=== PATIENT | female | born 1970 | race Caucasian/White ===

== ENCOUNTER 2016-04-17 20:07 | Emergency (ER) | payer MEDICARE, OTHER ==
--- NOTE | 2016-04-17 21:38 | DIAGNOSTIC IMAGING REPORT ---
PROCEDURE: XR CHEST 2 VIEW INDICATION: CHF, initial encounter TECHNIQUE: PA and lateral view. COMPARISON: Chest x-ray 02/11/2016 FINDINGS: Lungs are clear. Cardiovascular structures are normal. Bony thorax is unremarkable. No significant interval change. IMPRESSION: 1. Negative chest.
--- NOTE | 2016-04-17 21:59 | ED CLINICAL REPORT ---
Clinical Report - Physicians/Mid Levels [facility] [address] [place] [address] 04/17/2016 20:08 Patient: ALLIE SAXENA Time Seen: 20:31; initial patient contact, initial documentation, patient care assumed. Arrived- By private vehicle. Historian- patient. HISTORY OF PRESENT ILLNESS Chief Complaint: CHEST PAIN. At its maximum, severity described as severe. When seen in the E.D., severity described as severe. Modifying factors- worsened by movement and deep breaths. It is described as sharp and "pain" and it is described as located in the central chest area. No radiation. This started today and is still present. It was abrupt in onset and has been constant. No vomiting, difficulty breathing or diaphoresis. No additional chest pain. Similar symptoms previously: None. Recent medical care: Not recently seen/assessed. REVIEW OF SYSTEMS All systems otherwise negative, except as recorded above. PAST HISTORY See nurses notes. PROBLEMS: Upper Extremity Pain. Dizziness. Myofascial Strain. PTSD. Night Terrors. Gastroesophageal Reflux Disease. Bipolar Disorder. Depression. Neuropathy. Anxiety Reaction. Fall. Back Pain. Thyroid Disease. Head Injury. Contusion. . Choleystectomy. Tonsillectomy. Wrist surgery. Wrist surgery. Asthma. Discectomy. Diabetes Mellitus. --20:26 Radha Figueroa. ADDITIONAL SURGERIES: Back Surgery. Cholecystectomy. . Tonsillectomy. Wrist surgery. --20:26 Radha Figueroa. SOCIAL HISTORY Never smoker. History of occasional drug use: marijuana. No alcohol use. No recent travel. Is a local resident. FAMILY HISTORY Negative. ADDITIONAL NOTES The nursing notes have been reviewed with agreement regarding the chief complaint, HPI, ROS, PMH and patient medications and allergies. PHYSICAL EXAM Vital Signs: 04/17/2016 20:23 BP: 141/89. HR: 86. RR: 32. O2 saturation: 99%. Temp: 98.1 F. Have been reviewed as normal and appear to be correct. Appearance: Alert. Oriented X3. No acute distress. Anxious. Eyes: Pupils equal, round and reactive to light. Eyes normal inspection. Neck: Normal inspection. Neck supple. CVS: Normal heart rate and rhythm. Heart sounds normal. Pulses normal. Respiratory: No respiratory distress. Breath sounds normal. Chest nontender. Abdomen: Moderately obese. Back: Normal external inspection. Skin: Skin warm and dry. Normal skin color. No rash. Normal skin turgor. Extremities: Extremities exhibit normal ROM. No lower extremity edema. Neuro: Oriented X 3. No motor deficit. No sensory deficit. LABS, X-RAYS, AND EKG EKG: EKG time: (2026). No acute process. No acute ischemia. Normal EKG. Rate: 76. Normal EKG. The study has been interpreted contemporaneously by me (and dr kaiser). The EKG appears to be a good tracing. Interpretation time: 2031. Chest X-ray: Normal Chest X-Ray. (IMPRESSION: 1. Negative chest. Electronically Final signed by:Christian Phillip MD 04/17/2016 9:38:08 PM). The X-rays were interpreted by the radiologist and contemporaneously by me. PROGRESS AND PROCEDURES Course of Care: pt has long raquel for frequent narcs including pain meds and psych meds, over 1,000 pills and #9 er visits, see report for full details. Patient and spouse counseled in person regarding the patient's stable condition, test results and diagnosis. 21:59. Differential Diagnosis: I considered muscle strain, costochondritis, myositis, pleurisy, myocardial infarction, intermediate coronary syndrome, unstable angina, angina, aortic dissection, mitral valve prolapse, pericarditis, palpitations, pulmonary embolism, pneumonia, gastroesophageal reflux disease, esophagitis and esophageal spasm as a possible cause of chest pain in this patient. This is a partial list of diagnoses considered. (anxiety, substance abuse). Disposition: Discharged home in good and improved condition (21:59). Condition: good and stable. CLINICAL IMPRESSION Chest wall pain .12 lead EKG performed. INSTRUCTIONS Warnings: GENERAL WARNINGS: Return or contact your physician immediately if your condition worsens or changes unexpectedly, if not improving as expected, or if other problems arise. SPECIFICALLY, return if you develop chest pain, neck pain, jaw pain, shoulder pain, arm pain, back pain, difficulty breathing, a fluttering sensation in your chest, lightheadedness, fainting, extreme fatigue or sudden sweating. Prescription Medications: Naproxen 500 mg tablets: take 1 orally every 12 hours as needed for pain. Dispense twenty (20). No refills. Follow-up: Follow up with your doctor in about three days even if well. Call for an appointment. Summary of care provided to patient. Understanding of the discharge instructions verbalized by patient. (Electronically signed by Allie Steele A.R.N.P. 04/17/2016 22:16)
--- NOTE | 2016-04-17 21:59 | ED ORDER SUMMARY ---
..... Patient: ALLIE SAXENA OrderSheet [facility] VisitID: [id number] [address] [place] [address] 45y, F Registration Date/Time: 04/17/2016 ORDER SHEET Weight: 131.5 kg Allergies: Ampicillin, Bactrim, Latex, morphine, Penicillins GENERAL ORDERS: Chest 2V Urgent (20:34 04/17/2016 HBivens A.R.N.P.) (Ack 20:41 AMcQuoid ER Tech1) (20:48 MCampbell) MEDICATION ORDERS: Toradol IM 60 mg (NOW) (20:34 04/17/2016 HBivens A.R.N.P.) (20:38 HOSsydneeughfabrizio R.N.) IV FLUIDS: ORDER SHEET NOTES: [Electronically signed by Radha Figueroa (22:05 04/17/2016)] [Electronically signed by Allie Steele A.R.N.P. (22:16 04/17/2016)] [Electronically locked/signed by Radha Figueroa (22:05 04/17/2016)]
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
--- NOTE | 2016-04-17 21:59 | ED ORDER SUMMARY ---
..... Patient: ALLIE SAXENA OrderSheet [facility] VisitID: [id number] [address] [place] [address] 45y, F Registration Date/Time: 04/17/2016 ORDER SHEET Weight: 131.5 kg Allergies: Ampicillin, Bactrim, Latex, morphine, Penicillins GENERAL ORDERS: Chest 2V Urgent (20:34 04/17/2016 HBivens A.R.N.P.) (Ack 20:41 AMcQuoid ER Tech1) (20:48 MCampbell) MEDICATION ORDERS: Toradol IM 60 mg (NOW) (20:34 04/17/2016 HBivens A.R.N.P.) (20:38 HOSsydneeughfabrizio R.N.) IV FLUIDS: ORDER SHEET NOTES: [Electronically signed by Radha Figueroa (22:05 04/17/2016)] [Electronically signed by Allie Steele A.R.N.P. (22:16 04/17/2016)] [Electronically locked/signed by Radha Figueroa (22:05 04/17/2016)]
--- NOTE | 2016-04-17 22:16 | ED MAR SUMMARY ---
..... Medication Administration Record [facility] [address] [place] [address] Patient: ELIDIA SAXENA Visit ID: [id number] 45y, F Weight: 131.5 kg Height/Length: 64 in BMI: 49.8 ALLERGIES: Ampicillin, Bactrim, Latex, morphine, Penicillins Given 20:38 04/17/2016 Wiliam Carter R.N. Medication Administered: TORADOL [IM] (KETOROLAC TROMETHAMINE), Dose: 60 mg IM. Medication Ordered: Toradol IM 60 mg (NOW).
--- NOTE | 2016-04-17 22:16 | ED DISCHARGE INSTRUCTIONS ---
Patient: ALLIE SAXENA General Instructions [facility] VisitID: [id number] [place] [address] 45y, F Registration Date/Time: 04/17/2016 Chest wall pain .12 lead EKG performed. INSTRUCTIONS Warnings: GENERAL WARNINGS: Return or contact your physician immediately if your condition worsens or changes unexpectedly, if not improving as expected, or if other problems arise. SPECIFICALLY, return if you develop chest pain, neck pain, jaw pain, shoulder pain, arm pain, back pain, difficulty breathing, a fluttering sensation in your chest, lightheadedness, fainting, extreme fatigue or sudden sweating. Prescription Medications: Naproxen 500 mg tablets: take 1 orally every 12 hours as needed for pain. Dispense twenty (20). No refills. Follow-up: Follow up with your doctor in about three days even if well. Call for an appointment. Summary of care provided to patient. Understanding of the discharge instructions verbalized by patient. ADDITIONAL INFORMATION Chest Wall Pain: Costochondritis The chest pain that you have had today is caused by Costochondritis. This condition is due to an inflammation of the cartilage joining the ribs to the breastbone. It is not caused by heart or lung problems. Although the exact cause for costochondritis is not known, it often occurs during times of emotional stress. It can be painful, but it is not dangerous. It usually disappears within one to two weeks, but may recur. Rarely, a more serious condition may cause symptoms similar to costochondritis; therefore, watch for the warning signs listed below. Home Care: If you feel that emotional stress is a cause of your condition, try to identify sources of that stress. It may not be obvious! Learn ways to deal with the stress in your life such as regular exercise, muscle relaxation, meditation, or simply taking time out for yourself. For more information about this, consult your doctor or go to a local bookstore and review books and tapes available on the subject of stress reduction. You may use acetaminophen (Tylenol) or ibuprofen (Motrin, Advil) to control pain, unless another pain medicine was prescribed. [ NOTE: If you have liver disease or ever had a stomach ulcer, talk with your doctor before using these medicines.] The use of heat (hot wet compress or heating pad) with or without local analgesic creams (Deep Heat Rub, Jj Bell) will be helpful to reduce pain. Follow Up with your doctor as directed or sooner if you do not start to improve within the next two days. Get Prompt Medical Attention if any of the following occur: A change in the type of pain: if it feels different, becomes more severe, lasts longer, or spreads into your shoulder, arm, neck, jaw or back Shortness of breath or increased pain with breathing Weakness, dizziness, or fainting Cough with dark colored sputum (phlegm) or blood Abdominal pain Dark red or black stools Fever of 100.4F (38C) or higher, or as directed by your healthcare provider Naproxen Sodium Oral tablet What is this medicine? NAPROXEN (na PROX en) is a non-steroidal anti-inflammatory drug (NSAID). It is used to reduce swelling and to treat pain. This medicine may be used for dental pain, headache, or painful monthly periods. It is also used for painful joint and muscular problems such as arthritis, tendinitis, bursitis, and gout. How should I use this medicine? Take this medicine by mouth with a glass of water. Follow the directions on the prescription label. Take it with food if your stomach gets upset. Try to not lie down for at least 10 minutes after you take it. Take your medicine at regular intervals. Do not take your medicine more often than directed. Long-term, continuous use may increase the risk of heart attack or stroke. A special MedGuide will be given to you by the pharmacist with each prescription and refill. Be sure to read this information carefully each time. Talk to your litigation examiner regarding the use of this medicine in children. Special care may be needed. What side effects may I notice from receiving this medicine? Side effects that you should report to your doctor or health hospice care consultant as soon as possible: black or bloody stools, blood in the urine or vomit blurred vision chest pain difficulty breathing or wheezing nausea or vomiting severe stomach pain skin rash, skin redness, blistering or peeling skin, hives, or itching slurred speech or weakness on one side of the body swelling of eyelids, throat, lips unexplained weight gain or swelling unusually weak or tired yellowing of eyes or skin Side effects that usually do not require medical attention (report to your doctor or health hospice care consultant if they continue or are bothersome): constipation headache heartburn What may interact with this medicine? alcohol aspirin cidofovir diuretics lithium methotrexate other drugs for inflammation like ketorolac or prednisone pemetrexed probenecid warfarin What if I miss a dose? If you miss a dose, take it as soon as you can. If it is almost time for your next dose, take only that dose. Do not take double or extra doses. Where should I keep my medicine? Keep out of the reach of children. Store at room temperature between 15 and 30 degrees C (59 and 86 degrees F). Keep container tightly closed. Throw away any unused medicine after the expiration date. What should I tell my health care provider before I take this medicine? They need to know if you have any of these conditions: asthma cigarette smoker drink more than 3 alcohol containing drinks a day heart disease or circulation problems such as heart failure or leg edema (fluid retention) high blood pressure kidney disease liver disease stomach bleeding or ulcers an unusual or allergic reaction to naproxen, aspirin, other NSAIDs, other medicines, foods, dyes, or preservatives or trying to get breast-feeding What should I watch for while using this medicine? Tell your doctor or health hospice care consultant if your pain does not get better. Talk to your doctor before taking another medicine for pain. Do not treat yourself. This medicine does not prevent heart attack or stroke. In fact, this medicine may increase the chance of a heart attack or stroke. The chance may increase with longer use of this medicine and in people who have heart disease. If you take aspirin to prevent heart attack or stroke, talk with your doctor or health hospice care consultant. Do not take other medicines that contain aspirin, ibuprofen, or naproxen with this medicine. Side effects such as stomach upset, nausea, or ulcers may be more likely to occur. Many medicines available without a prescription should not be taken with this medicine. This medicine can cause ulcers and bleeding in the stomach and intestines at any time during treatment. Do not smoke cigarettes or drink alcohol. These increase irritation to your stomach and can make it more susceptible to damage from this medicine. Ulcers and bleeding can happen without warning symptoms and can cause . You may get drowsy or dizzy. Do not drive, use machinery, or do anything that needs mental alertness until you know how this medicine affects you. Do not stand or sit up quickly, especially if you are an older patient. This reduces the risk of dizzy or fainting spells. This medicine can cause you to bleed more easily. Try to avoid damage to your teeth and gums when you brush or floss your teeth. You have been given the following additional information: Chest Wall Pain, Costochondritis Naproxen Sodium Oral tablet (Electronically signed by Allie Steele A.R.N.P. 04/17/2016 22:16)
--- NOTE | 2016-04-17 22:16 | ED DISCHARGE INSTRUCTIONS ---
Patient: ALLIE SAXENA General Instructions [facility] VisitID: [id number] [place] [address] 45y, F Registration Date/Time: 04/17/2016 Chest wall pain .12 lead EKG performed. INSTRUCTIONS Warnings: GENERAL WARNINGS: Return or contact your physician immediately if your condition worsens or changes unexpectedly, if not improving as expected, or if other problems arise. SPECIFICALLY, return if you develop chest pain, neck pain, jaw pain, shoulder pain, arm pain, back pain, difficulty breathing, a fluttering sensation in your chest, lightheadedness, fainting, extreme fatigue or sudden sweating. Prescription Medications: Naproxen 500 mg tablets: take 1 orally every 12 hours as needed for pain. Dispense twenty (20). No refills. Follow-up: Follow up with your doctor in about three days even if well. Call for an appointment. Summary of care provided to patient. Understanding of the discharge instructions verbalized by patient. ADDITIONAL INFORMATION Chest Wall Pain: Costochondritis The chest pain that you have had today is caused by Costochondritis. This condition is due to an inflammation of the cartilage joining the ribs to the breastbone. It is not caused by heart or lung problems. Although the exact cause for costochondritis is not known, it often occurs during times of emotional stress. It can be painful, but it is not dangerous. It usually disappears within one to two weeks, but may recur. Rarely, a more serious condition may cause symptoms similar to costochondritis; therefore, watch for the warning signs listed below. Home Care: If you feel that emotional stress is a cause of your condition, try to identify sources of that stress. It may not be obvious! Learn ways to deal with the stress in your life such as regular exercise, muscle relaxation, meditation, or simply taking time out for yourself. For more information about this, consult your doctor or go to a local bookstore and review books and tapes available on the subject of stress reduction. You may use acetaminophen (Tylenol) or ibuprofen (Motrin, Advil) to control pain, unless another pain medicine was prescribed. [ NOTE: If you have liver disease or ever had a stomach ulcer, talk with your doctor before using these medicines.] The use of heat (hot wet compress or heating pad) with or without local analgesic creams (Deep Heat Rub, Jj Bell) will be helpful to reduce pain. Follow Up with your doctor as directed or sooner if you do not start to improve within the next two days. Get Prompt Medical Attention if any of the following occur: A change in the type of pain: if it feels different, becomes more severe, lasts longer, or spreads into your shoulder, arm, neck, jaw or back Shortness of breath or increased pain with breathing Weakness, dizziness, or fainting Cough with dark colored sputum (phlegm) or blood Abdominal pain Dark red or black stools Fever of 100.4F (38C) or higher, or as directed by your healthcare provider Naproxen Sodium Oral tablet What is this medicine? NAPROXEN (na PROX en) is a non-steroidal anti-inflammatory drug (NSAID). It is used to reduce swelling and to treat pain. This medicine may be used for dental pain, headache, or painful monthly periods. It is also used for painful joint and muscular problems such as arthritis, tendinitis, bursitis, and gout. How should I use this medicine? Take this medicine by mouth with a glass of water. Follow the directions on the prescription label. Take it with food if your stomach gets upset. Try to not lie down for at least 10 minutes after you take it. Take your medicine at regular intervals. Do not take your medicine more often than directed. Long-term, continuous use may increase the risk of heart attack or stroke. A special MedGuide will be given to you by the pharmacist with each prescription and refill. Be sure to read this information carefully each time. Talk to your outside property agent regarding the use of this medicine in children. Special care may be needed. What side effects may I notice from receiving this medicine? Side effects that you should report to your doctor or health ostomy care nurse as soon as possible: black or bloody stools, blood in the urine or vomit blurred vision chest pain difficulty breathing or wheezing nausea or vomiting severe stomach pain skin rash, skin redness, blistering or peeling skin, hives, or itching slurred speech or weakness on one side of the body swelling of eyelids, throat, lips unexplained weight gain or swelling unusually weak or tired yellowing of eyes or skin Side effects that usually do not require medical attention (report to your doctor or health ostomy care nurse if they continue or are bothersome): constipation headache heartburn What may interact with this medicine? alcohol aspirin cidofovir diuretics lithium methotrexate other drugs for inflammation like ketorolac or prednisone pemetrexed probenecid warfarin What if I miss a dose? If you miss a dose, take it as soon as you can. If it is almost time for your next dose, take only that dose. Do not take double or extra doses. Where should I keep my medicine? Keep out of the reach of children. Store at room temperature between 15 and 30 degrees C (59 and 86 degrees F). Keep container tightly closed. Throw away any unused medicine after the expiration date. What should I tell my health care provider before I take this medicine? They need to know if you have any of these conditions: asthma cigarette smoker drink more than 3 alcohol containing drinks a day heart disease or circulation problems such as heart failure or leg edema (fluid retention) high blood pressure kidney disease liver disease stomach bleeding or ulcers an unusual or allergic reaction to naproxen, aspirin, other NSAIDs, other medicines, foods, dyes, or preservatives or trying to get breast-feeding What should I watch for while using this medicine? Tell your doctor or health ostomy care nurse if your pain does not get better. Talk to your doctor before taking another medicine for pain. Do not treat yourself. This medicine does not prevent heart attack or stroke. In fact, this medicine may increase the chance of a heart attack or stroke. The chance may increase with longer use of this medicine and in people who have heart disease. If you take aspirin to prevent heart attack or stroke, talk with your doctor or health ostomy care nurse. Do not take other medicines that contain aspirin, ibuprofen, or naproxen with this medicine. Side effects such as stomach upset, nausea, or ulcers may be more likely to occur. Many medicines available without a prescription should not be taken with this medicine. This medicine can cause ulcers and bleeding in the stomach and intestines at any time during treatment. Do not smoke cigarettes or drink alcohol. These increase irritation to your stomach and can make it more susceptible to damage from this medicine. Ulcers and bleeding can happen without warning symptoms and can cause . You may get drowsy or dizzy. Do not drive, use machinery, or do anything that needs mental alertness until you know how this medicine affects you. Do not stand or sit up quickly, especially if you are an older patient. This reduces the risk of dizzy or fainting spells. This medicine can cause you to bleed more easily. Try to avoid damage to your teeth and gums when you brush or floss your teeth. You have been given the following additional information: Chest Wall Pain, Costochondritis Naproxen Sodium Oral tablet (Electronically signed by Allie Steele A.R.N.P. 04/17/2016 22:16)
--- NOTE | 2016-04-17 22:16 | ED MED RECONCILIATION SUMMARY ---
Patient: ODESSAALLIE Medication Reconciliation Report [facility] VisitID: [id number] [address] [place] [address] 45y, F Registration Date/Time: 04/17/2016 Weight: 131.5 kg Height/Length: 64 in. BMI: 49.8 ALLERGIES: Ampicillin, Bactrim, Latex, morphine, Penicillins The patient's Home Medications are listed below: THE FOLLOWING MEDICATIONS NEED TO BE RECONCILED: Ambien Oral 10 mg, at bedtime Gabapentin Oral (600 mg), 3x a day Ibuprofen Oral 600 mg, 3x a day Imaprine 2 tabs, every PM LamoTRIgine Oral (50 mg) 2 tablets, daily Levothyroxine Sodium Oral 137mcg, daily Lexapro Oral 30 mg, daily MetFORMIN HCl Oral 1000, 2x a day Omeprazole Oral 20 mg, 2x a day Prazosin HCl Oral unknown, at bedtime Robaxin Oral 750 mg, 3x a day TraZODone HCl Oral unknown, at bedtime The source(s) of the original Home Medication information: Not obtained. The following Medications were given to the patient in the Emergency Department: Toradol [IM] IM 60 mg, administered: 04/17/2016 8:38:00 PM The following Medications were prescribed to the patient: Naproxen 500 mg tablets: take 1 orally every 12 hours as needed for pain. Dispense twenty (20). No refills. -- Allie Steele A.R.N.P.
--- NOTE | 2016-04-17 22:16 | ED MED RECONCILIATION SUMMARY ---
Patient: ODESSAALLIE Medication Reconciliation Report [facility] VisitID: [id number] [address] [place] [address] 45y, F Registration Date/Time: 04/17/2016 Weight: 131.5 kg Height/Length: 64 in. BMI: 49.8 ALLERGIES: Ampicillin, Bactrim, Latex, morphine, Penicillins The patient's Home Medications are listed below: THE FOLLOWING MEDICATIONS NEED TO BE RECONCILED: Ambien Oral 10 mg, at bedtime Gabapentin Oral (600 mg), 3x a day Ibuprofen Oral 600 mg, 3x a day Imaprine 2 tabs, every PM LamoTRIgine Oral (50 mg) 2 tablets, daily Levothyroxine Sodium Oral 137mcg, daily Lexapro Oral 30 mg, daily MetFORMIN HCl Oral 1000, 2x a day Omeprazole Oral 20 mg, 2x a day Prazosin HCl Oral unknown, at bedtime Robaxin Oral 750 mg, 3x a day TraZODone HCl Oral unknown, at bedtime The source(s) of the original Home Medication information: Not obtained. The following Medications were given to the patient in the Emergency Department: Toradol [IM] IM 60 mg, administered: 04/17/2016 8:38:00 PM The following Medications were prescribed to the patient: Naproxen 500 mg tablets: take 1 orally every 12 hours as needed for pain. Dispense twenty (20). No refills. -- Allie Steele A.R.N.P.
--- NOTE | 2016-04-17 22:16 | ED MAR SUMMARY ---
..... Medication Administration Record [facility] [address] [place] [address] Patient: ELIDIA SAXENA Visit ID: [id number] 45y, F Weight: 131.5 kg Height/Length: 64 in BMI: 49.8 ALLERGIES: Ampicillin, Bactrim, Latex, morphine, Penicillins Given 20:38 04/17/2016 Wiliam Carter R.N. Medication Administered: TORADOL [IM] (KETOROLAC TROMETHAMINE), Dose: 60 mg IM. Medication Ordered: Toradol IM 60 mg (NOW).
== END 2016-04-17 21:17 | disposition home or self-care (01) ==
LOC: ED SRH 20:07
DX: R07.89 Other chest pain (principal); E11.9 Type 2 diabetes mellitus without complications; E07.9 Disorder of thyroid, unspecified; K21.9 Gastro-esophageal reflux disease without esophagitis; Z79.84 Long term (current) use of oral hypoglycemic drugs; Z79.899 Other long term (current) drug therapy; Z79.1 Long term (current) use of non-steroidal anti-inflammatories (NSAID); Z88.0 Allergy status to penicillin; Z88.1 Allergy status to other antibiotic agents; Z88.5 Allergy status to narcotic agent

== ENCOUNTER 2016-05-05 22:36 | Emergency (ER) | payer MEDICARE, OTHER ==
--- NOTE | 2016-05-06 01:00 | ED ORDER SUMMARY ---
..... 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 (03:12 05/06/2016)] [Electronically signed by Daya Cardoza MD (18:13 05/06/2016)] [Electronically locked/signed by Richie Lau R.N. (03:12 05/06/2016)]
--- NOTE | 2016-05-06 01:00 | ED CLINICAL REPORT ---
Clinical Report - Physicians/Mid Levels [facility] [address] [place] [address] 05/05/2016 22:36 Patient: ELIDIA SAXENA Time Seen: 23:28. Arrived- By private vehicle. Historian- patient. HISTORY OF PRESENT ILLNESS Chief Complaint: CHEST PAIN. It is described as sharp and "pain" and it is described as located in the left chest area. No radiation. Is still present. Onset during coughing. At its maximum, severity described as 8 / 10. When seen in the E.D., severity described as 8 / 10. Modifying factors- worsened by movement, cough and deep breaths. Not relieved by anything. No nausea, vomiting or diaphoresis. She has had difficulty breathing (hurts to take a deep breath). Similar symptoms previously: Once. ( About 1 month ago, pt fell and injured her L ribs in the same spot. X-ray showed no fracture at the time.). Recent medical care: Not recently seen/assessed. REVIEW OF SYSTEMS No fever, chills, pedal edema, calf pain or fainting episodes. No headache, sore throat, blurred vision, abdominal pain or black stools. No difficulty with urination, skin rash, enlarged lymph nodes, joint pain or bloody stools. The patient has had a cough. All systems otherwise negative, except as recorded above. PAST HISTORY Problems: Dizziness. PTSD. Night Terrors. Gastroesophageal Reflux Disease. Bipolar Disorder. Depression. Neuropathy. Anxiety Reaction. Thyroid Disease. Head Injury. Asthma. Diabetes Mellitus. Additional Surgeries: Cholecystectomy. . Discectomy for intervertebral herniated disc, nucleus pulposus. Tonsillectomy. Wrist surgery. Allergies: Ampicillin. Latex. Morphine and Related. Penicillins. Zithromax. SOCIAL HISTORY Never smoker. History of drug use: marijuana. No alcohol use. ADDITIONAL NOTES The nursing notes have been reviewed. PHYSICAL EXAM Vital Signs: 05/05/2016 23:02 BP: 111/77. HR: 94. RR: 16. O2 saturation: 97%. Temp: 97.5 F. Pain level now: 8/10. Have been reviewed. Appearance: Alert. Patient in moderate distress. Distress appears due to pain and anxiety. (PT is standing at the counter, crying and holding her L ribs.). Eyes: Pupils equal, round and reactive to light. Eyes normal inspection. ENT: Nose normal. Neck: Normal inspection. CVS: Normal heart rate and rhythm. Heart sounds normal. Pulses normal. Respiratory: No respiratory distress. Chest pain reproducible (L lateral rib cage, around the 5th-6th rib level). Breath sounds normal. Abdomen: Soft and nontender. Back: Normal external inspection. No CVA tenderness. Skin: Skin warm and dry. Normal skin color. No rash. Normal skin turgor. Extremities: Extremities exhibit normal ROM. No lower extremity edema. Neuro: (Grossly intact.). LABS, X-RAYS, AND EKG Sternum / Ribs X-rays: No fracture present. Normal lung markings present. Soft tissues normal. No bony lesion present. Views: left ribs. AP of chest. Technique: good. The X-rays were independently viewed by me and interpreted contemporaneously by me. Prior films were not available for comparison. Pulse Oximetry: 05/05/2016 23:02 O2 saturation: 97%. (FIO2 - room air). Interpretation: normal. PROGRESS AND PROCEDURES Course of Care: Pt was given IM Toradol and Dilaudid for symptomatic relief. X-ray series was negative. Patient and spouse counseled in person regarding the patient's stable condition, test results, diagnosis and need for follow-up. Concerns were addressed. Old medical records reviewed. Disposition: Discharged. Condition: stable and improved. CLINICAL IMPRESSION Chest wall pain INSTRUCTIONS (Your x-ray series looks good--no broken ribs. When you fell, you likely bruised your ribs and strained the soft tissues of your chest wall.). Warnings: SEDATIVE MEDICATION: You were given sedative medication during your visit. Do not drive or operate dangerous machinery for 6 hours. GENERAL WARNINGS: Return or contact your physician immediately if your condition worsens or changes unexpectedly, if not improving as expected, or if other problems arise. Prescription Medications: Hydrocodone/APAP 5mg / 325mg: take 1-2 orally every 6 hours as needed for pain. Dispense fifteen (15). No refill. Follow-up: Follow up with your doctor in five days if not better. Understanding of the discharge instructions verbalized by patient. (Electronically signed by Daya Cardoza MD 05/06/2016 18:13)
--- NOTE | 2016-05-06 01:00 | ED NURSING NOTES ---
Clinical Report - Nurses [place] [address] [place] [address] 05/05/2016 22:36 Patient: ELIDIA SAXENA TRIAGE Triage time 23:02. Acuity: LEVEL 4. Chief Complaint: FALL OUT OF BED, onto a carpeted surface and landed on their back. Alert. --23:10 TonyaB, R.N. 23:02 05/05/16. BP: 111/77. HR: 94. RR: 16. O2 saturation: 97%. Temp: 97.5 F. Pain level now: 10/11. --23:10 TonyaB, R.N. Weight: 133.3 kg. Height/Length: 64 inches. BMI: 50.5. --23:06 TonyaB, R.N. Allergies Latex. --23:04 TonyaB, R.N. Penicillins. --23:04 TonyaB, R.N. Morphine and Related. --23:05 TonyaB, R.N. Ampicillin. --23:05 TonyaB, R.N. Zithromax. --23:05 TonyaB, R.N. History Arrived by private vehicle. Historian: patient. Accompanied by family. Location of injuries: right breast. This occurred yesterday. ( pt complains right rib and back pain). She has had back pain. Treatment STEWARD/STEWARDESS THIRD CLASS: None. Trauma activation: Pre-hospital notification of patient arrival was not received. PAST MEDICAL HX: Tetanus status: up-to-date. Immunizations: up-to-date. SOCIAL HX: Never smoker. History of drug use: marijuana. No alcohol use. No infectious disease exposure. SELF HARM ASSESSMENT: A self harm assessment was performed. The patient answered "no" to the question "Have you recently felt down, depressed, or hopeless?", "Have you noticed less interest or pleasure in doing things?", "Do you have thoughts of harming or killing yourself?", "Are you here because you tried to hurt yourself?", "Have you ever tried to hurt yourself before today?", "Have you recently had thoughts about harming or killing others?" and "Do you have any dangerous items in your possession?". FALL RISK ASSESSMENT: Fall risk assessment completed. No fall risk identified. NUTRITIONAL RISK ASSESSMENT: The nutritional risk assessment revealed no deficiencies. FUNCTIONAL ASSESSMENT: Functional assessment: no impairments noted. LEARNING NEEDS ASSESSMENT: The learning needs assessment revealed no barriers. SKIN INTEGRITY ASSESSMENT: Skin integrity risk assessment completed. No skin integrity risk identified. --23:10 Jesse Robesron Interventions ID band on patient. To treatment room. --23:10 Jesse Roberson PHYSICAL ASSESSMENT To room via wheelchair. GENERAL / NEURO / PSYCH: Alert. Oriented X 4. Appears in pain. HEENT: Pupils equal, round and reactive to light. Head non-tender. RESPIRATORY: Respirations not labored. Chest wall tenderness. Breath sounds within normal limits. CVS: Normal heart rate and rhythm. Pulses within normal limits. Capillary refill less than 2 seconds. GI / : Abdomen soft and nontender. EXTREMITIES: Extremities exhibit normal ROM. Neuro-vascular status intact to the extremity. SKIN: Skin intact. Skin is warm and dry. --23:11 Jesse Roberson NURSING PROGRESS NOTES ( pt states she was seen at urgent care a few days ago and was given xray and rx for ultram, pt states she is no better). --23:28 Jesse Roberson 00:08 05/06/2016 Toradol (Ketorolac Tromethamine) IM 60 mg given. Given in the left ventral gluteus. Allergies verified and confirmed 5 rights. --00:12 Richie Lau R.N. 00:09 05/06/2016 Dilaudid (HYDROmorphone HCl PF) IM 1 mg given. Given in the right ventral gluteus. Allergies verified, confirmed 5 rights and sedative warning given to the patient. --00:12 Richie Lau R.N. Patient returned from radiology by stretcher. (00:40). --00:40 Jesse Roberson DISPOSITION / DISCHARGE Departure time: 01:39. Condition at departure: improved. No learning barriers present. Discharge instructions provided and reviewed with the patient. Reviewed medication(s) side effects, precautions, dosing and course information. Prescription(s) given to the patient. Patient verbalized understanding. Written instructions provided in Bulgarian. The patient was discharged by the physician. She was discharged home and accompanied by spouse. She left the Emergency Department ambulatory and via private vehicle. Spouse driving. FALL RISK ASSESSMENT: Fall risk assessment completed. No fall risk identified. --01:39 Jesse Roberson 01:37 05/06/16. BP: 155/74. HR: 78. RR: 18. O2 saturation: 98%. Temp: deferred. Pain level now 0/10. --01:39 Jesse Roberson Locked/Released at 05/06/2016 3:12 by Richie Lau R.N.
--- NOTE | 2016-05-06 01:00 | ED ORDER SUMMARY ---
..... 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 (03:12 05/06/2016)] [Electronically signed by Daya Cardoza MD (18:13 05/06/2016)] [Electronically locked/signed by Richie Lau R.N. (03:12 05/06/2016)]
--- NOTE | 2016-05-06 01:00 | ED NURSING NOTES ---
Clinical Report - Nurses [place] [address] [place] [address] 05/05/2016 22:36 Patient: ELIDIA SAXENA TRIAGE Triage time 23:02. Acuity: LEVEL 4. Chief Complaint: FALL OUT OF BED, onto a carpeted surface and landed on their back. Alert. --23:10 TonyaB, R.N. 23:02 05/05/16. BP: 111/77. HR: 94. RR: 16. O2 saturation: 97%. Temp: 97.5 F. Pain level now: 10/11. --23:10 TonyaB, R.N. Weight: 133.3 kg. Height/Length: 64 inches. BMI: 50.5. --23:06 TonyaB, R.N. Allergies Latex. --23:04 TonyaB, R.N. Penicillins. --23:04 TonyaB, R.N. Morphine and Related. --23:05 TonyaB, R.N. Ampicillin. --23:05 TonyaB, R.N. Zithromax. --23:05 TonyaB, R.N. History Arrived by private vehicle. Historian: patient. Accompanied by family. Location of injuries: right breast. This occurred yesterday. ( pt complains right rib and back pain). She has had back pain. Treatment PUMP SERVICER: None. Trauma activation: Pre-hospital notification of patient arrival was not received. PAST MEDICAL HX: Tetanus status: up-to-date. Immunizations: up-to-date. SOCIAL HX: Never smoker. History of drug use: marijuana. No alcohol use. No infectious disease exposure. SELF HARM ASSESSMENT: A self harm assessment was performed. The patient answered "no" to the question "Have you recently felt down, depressed, or hopeless?", "Have you noticed less interest or pleasure in doing things?", "Do you have thoughts of harming or killing yourself?", "Are you here because you tried to hurt yourself?", "Have you ever tried to hurt yourself before today?", "Have you recently had thoughts about harming or killing others?" and "Do you have any dangerous items in your possession?". FALL RISK ASSESSMENT: Fall risk assessment completed. No fall risk identified. NUTRITIONAL RISK ASSESSMENT: The nutritional risk assessment revealed no deficiencies. FUNCTIONAL ASSESSMENT: Functional assessment: no impairments noted. LEARNING NEEDS ASSESSMENT: The learning needs assessment revealed no barriers. SKIN INTEGRITY ASSESSMENT: Skin integrity risk assessment completed. No skin integrity risk identified. --23:10 Jesse Roberson Interventions ID band on patient. To treatment room. --23:10 Jesse Roberson PHYSICAL ASSESSMENT To room via wheelchair. GENERAL / NEURO / PSYCH: Alert. Oriented X 4. Appears in pain. HEENT: Pupils equal, round and reactive to light. Head non-tender. RESPIRATORY: Respirations not labored. Chest wall tenderness. Breath sounds within normal limits. CVS: Normal heart rate and rhythm. Pulses within normal limits. Capillary refill less than 2 seconds. GI / : Abdomen soft and nontender. EXTREMITIES: Extremities exhibit normal ROM. Neuro-vascular status intact to the extremity. SKIN: Skin intact. Skin is warm and dry. --23:11 Jesse Roberson NURSING PROGRESS NOTES ( pt states she was seen at urgent care a few days ago and was given xray and rx for ultram, pt states she is no better). --23:28 Jesse Roberson 00:08 05/06/2016 Toradol (Ketorolac Tromethamine) IM 60 mg given. Given in the left ventral gluteus. Allergies verified and confirmed 5 rights. --00:12 Richie Lau R.N. 00:09 05/06/2016 Dilaudid (HYDROmorphone HCl PF) IM 1 mg given. Given in the right ventral gluteus. Allergies verified, confirmed 5 rights and sedative warning given to the patient. --00:12 Richie Lau R.N. Patient returned from radiology by stretcher. (00:40). --00:40 Jesse Roberson DISPOSITION / DISCHARGE Departure time: 01:39. Condition at departure: improved. No learning barriers present. Discharge instructions provided and reviewed with the patient. Reviewed medication(s) side effects, precautions, dosing and course information. Prescription(s) given to the patient. Patient verbalized understanding. Written instructions provided in Urdu. The patient was discharged by the physician. She was discharged home and accompanied by spouse. She left the Emergency Department ambulatory and via private vehicle. Spouse driving. FALL RISK ASSESSMENT: Fall risk assessment completed. No fall risk identified. --01:39 Jesse Roberson 01:37 05/06/16. BP: 155/74. HR: 78. RR: 18. O2 saturation: 98%. Temp: deferred. Pain level now 0/10. --01:39 Jesse Roberson Locked/Released at 05/06/2016 3:12 by Richie Lau R.N.
--- NOTE | 2016-05-06 08:45 | DIAGNOSTIC IMAGING REPORT ---
PROCEDURE: XR RIBS UNILAT W/PA CHEST-RT INDICATION: TRAUMA/INJURY TECHNIQUE: Two views of the right ribs with single PA view chest. COMPARISON: 04/17/2016 FINDINGS: RIGHT RIBS: No displaced rib fractures. No suspicious rib lesions. CHEST: Normal cardiomediastinal contour. Clear lungs without pleural effusion, pneumothorax, or contusion. The other visible osseous structures are intact. IMPRESSION: 1. Intact right ribs. 2. Normal chest without radiographic evidence of trauma.
--- NOTE | 2016-05-06 18:14 | ED MAR SUMMARY ---
..... Medication Administration Record [facility] [address] [place] [address] Patient: ELIDIA SAXENA Visit ID: [id number] 45y, F Weight: 133.3 kg Height/Length: 64 in BMI: 50.5 ALLERGIES: Zithromax, Ampicillin, Morphine and Related, Penicillins, Latex Given 00:08 05/06/2016 Richie Lau, R.N. Medication Administered: TORADOL [IM] (KETOROLAC TROMETHAMINE), Dose: 60 mg IM. Medication Ordered: Toradol IM 60 mg (NOW). Given 00:09 05/06/2016 Richie Lau, R.N. Medication Administered: DILAUDID [IM] (HYDROMORPHONE HCL PF), Dose: 1 mg IM. Medication Ordered: Dilaudid IM 1 mg (HIGH ALERT MEDICATION, NOW).
--- NOTE | 2016-05-06 18:14 | ED DISCHARGE INSTRUCTIONS ---
Patient: ELIDIA SAXENA General Instructions [facility] VisitID: [id number] [place] [address] 45y, F Registration Date/Time: 05/05/2016 Chest wall pain INSTRUCTIONS (Your x-ray series looks good--no broken ribs. When you fell, you likely bruised your ribs and strained the soft tissues of your chest wall.). Warnings: SEDATIVE MEDICATION: You were given sedative medication during your visit. Do not drive or operate dangerous machinery for 6 hours. GENERAL WARNINGS: Return or contact your physician immediately if your condition worsens or changes unexpectedly, if not improving as expected, or if other problems arise. Prescription Medications: Hydrocodone/APAP 5mg / 325mg: take 1-2 orally every 6 hours as needed for pain. Dispense fifteen (15). No refill. Follow-up: Follow up with your doctor in five days if not better. Understanding of the discharge instructions verbalized by patient. ADDITIONAL INFORMATION Chest Contusion Acontusion is a bruise to the skin, muscle or ribs. It may cause pain, tenderness, swelling and a purplish discoloration. Contusions take a few days to a few weeks to heal. Home Care: Rest. You should not be doing any heavy lifting or strenuous exertion, or any activity that causes pain. You may use acetaminophen (Tylenol) or ibuprofen (Motrin, Advil) to control pain, unless another pain medicine was prescribed. [ NOTE: If you have chronic liver or kidney disease or ever had a stomach ulcer or GI bleeding, talk with your doctor before using these medicines.] Follow Up with your doctor during the next week or as directed. Get Prompt Medical Attention if any of the following occur: Shortness of breath Increasing chest pain with breathing Dizziness, weakness or fainting New or worsening of abdominal pain Fever of 100.4F (38C) or higher, or as directed by your healthcare provider Chest Strain A strain of the chest is due to stretching and tearing of the muscle fibers between the ribs. This may occur as a result of severe coughing, strenuous lifting or twisting injuries of the upper back. This usually causes increased pain with movement or deep breathing. This may take a few days to a few weeks to heal. Home Care: Rest. Avoid heavy lifting or strenuous exertion. Avoid any activity that causes pain. If you have a severe cough, use a cough syrup such as Robitussin DM (containing dextromethorphan) unless another cough medicine was prescribed. You may use acetaminophen (Tylenol) or ibuprofen (Motrin, Advil) to control pain, unless another medicine was prescribed. [ NOTE: If you have chronic liver or kidney disease or ever had a stomach ulcer or GI bleeding, talk with your doctor before using these medicines.] Follow Up with your doctor as directed. Get Prompt Medical Attention if any of the following occur: A change in the type of pain: if it feels different, becomes more severe, lasts longer, or begins to spread into your shoulder, arm, neck, jaw or back Shortness of breath or increased pain with breathing Cough with dark colored sputum (phlegm) or blood Weakness, dizziness, or fainting Fever of 100.4F (38C) or higher, or as directed by your healthcare provider You have been given the following additional information: Chest Wall Contusion Chest Wall Strain (Electronically signed by Daya Cardoza MD 05/06/2016 18:13)
--- NOTE | 2016-05-06 18:14 | ED MED RECONCILIATION SUMMARY ---
Patient: ELIDIA SAXENA Medication Reconciliation Report [facility] VisitID: [id number] [address] [place] [address] 45y, F Registration Date/Time: 05/05/2016 Weight: 133.3 kg Height/Length: 64 in. BMI: 50.5 ALLERGIES: Ampicillin, Latex, Morphine and Related, Penicillins, Zithromax The patient's Home Medications are listed below: Not obtained. The source(s) of the original Home Medication information: Not obtained. The following Medications were given to the patient in the Emergency Department: Toradol [IM] IM 60 mg, administered: 05/06/2016 12:08:00 AM Dilaudid [IM] IM 1 mg, administered: 05/06/2016 12:09:00 AM The following Medications were prescribed to the patient: Hydrocodone/APAP 5mg / 325mg: take 1-2 orally every 6 hours as needed for pain. Dispense fifteen (15). No refill. -- Daya Cardoza MD
--- NOTE | 2016-05-06 18:14 | ED MAR SUMMARY ---
..... Medication Administration Record [facility] [address] [place] [address] Patient: ELIDIA SAXENA Visit ID: [id number] 45y, F Weight: 133.3 kg Height/Length: 64 in BMI: 50.5 ALLERGIES: Zithromax, Ampicillin, Morphine and Related, Penicillins, Latex Given 00:08 05/06/2016 Richie Lau, R.N. Medication Administered: TORADOL [IM] (KETOROLAC TROMETHAMINE), Dose: 60 mg IM. Medication Ordered: Toradol IM 60 mg (NOW). Given 00:09 05/06/2016 Richie Lau, R.N. Medication Administered: DILAUDID [IM] (HYDROMORPHONE HCL PF), Dose: 1 mg IM. Medication Ordered: Dilaudid IM 1 mg (HIGH ALERT MEDICATION, NOW).
--- NOTE | 2016-05-06 18:14 | ED MED RECONCILIATION SUMMARY ---
Patient: ELIDIA SAXENA Medication Reconciliation Report [facility] VisitID: [id number] [address] [place] [address] 45y, F Registration Date/Time: 05/05/2016 Weight: 133.3 kg Height/Length: 64 in. BMI: 50.5 ALLERGIES: Ampicillin, Latex, Morphine and Related, Penicillins, Zithromax The patient's Home Medications are listed below: Not obtained. The source(s) of the original Home Medication information: Not obtained. The following Medications were given to the patient in the Emergency Department: Toradol [IM] IM 60 mg, administered: 05/06/2016 12:08:00 AM Dilaudid [IM] IM 1 mg, administered: 05/06/2016 12:09:00 AM The following Medications were prescribed to the patient: Hydrocodone/APAP 5mg / 325mg: take 1-2 orally every 6 hours as needed for pain. Dispense fifteen (15). No refill. -- Daya Cardoza MD
== END 2016-05-06 01:30 | disposition home or self-care (01) ==
LOC: ED SRH 22:36
DX: R07.89 Other chest pain (principal); E11.9 Type 2 diabetes mellitus without complications; Z88.5 Allergy status to narcotic agent; Z88.1 Allergy status to other antibiotic agents; Z88.0 Allergy status to penicillin; Z91.040 Latex allergy status

== ENCOUNTER 2016-06-30 20:17 | Emergency (ER) | payer MEDICARE, OTHER ==
--- NOTE | 2016-06-30 20:58 | DIAGNOSTIC IMAGING REPORT ---
PROCEDURE: XR SHOULDER 2 OR MORE VW-LEFT INDICATION: TRAUMA/INJURY TECHNIQUE: Three views. COMPARISON: None. FINDINGS: There mild degenerative changes of the left acromioclavicular joint. Osseous structures and joint spaces are otherwise normal. IMPRESSION: 1. Mild degenerative changes of the left acromioclavicular joint. 2. Otherwise negative left shoulder.
--- NOTE | 2016-06-30 21:15 | ED CLINICAL REPORT ---
Clinical Report - Physicians/Mid Levels [place] [address] [place] [address] 06/30/2016 20:17 [id number] Time Seen: 20:27; upon arrival, initial patient contact, initial documentation, patient care assumed. Arrived- By private vehicle. Historian- patient and significant other. HISTORY OF PRESENT ILLNESS Chief Complaint: Injury to left shoulder. The injury happened just prior to arrival about 2 years ago. The patient sustained a light direct blow. ([employer]). ( states a box with a pedestal fan in it fell off [employer] shelf and hit the top of her shoulder). Patient is experiencing severe pain. Patient denies injury to the head or neck. No other injury. ( pt admitted to not getting her mri of her shoulder). REVIEW OF SYSTEMS No swelling, tingling, numbness, weakness or suspected foreign body. No skin laceration. She has had severe joint pain (2 years ago), involving the left shoulder. All systems otherwise negative, except as recorded above. PAST HISTORY See nurses notes. PAST HISTORY Problems: PTSD. Night Terrors. Gastroesophageal Reflux Disease. Bipolar Disorder. Depression. Neuropathy. Anxiety Reaction. Thyroid Disease. Head Injury. Asthma. Diabetes Mellitus. Additional Surgeries: Back Surgery. Cholecystectomy. . Tonsillectomy. Wrist surgery. She has had a prior injury to the same area (has had chronic shoulder pain/issues for 2 years). SOCIAL HISTORY Never smoker. History of occasional drug use: marijuana. No alcohol use. No recent travel. Is a local resident. FAMILY HISTORY No significant family medical history. ADDITIONAL NOTES The nursing notes have been reviewed with agreement regarding the chief complaint, HPI, ROS, PMH and patient medications and allergies. PHYSICAL EXAM Appearance: Alert. Oriented X3. No acute distress. Head: Head atraumatic. Eyes: Pupils equal, round and reactive to light. Eyes normal inspection. Neck: Normal inspection. Neck supple. C-spine non-tender. Respiratory: No respiratory distress. Abdomen: Moderately obese. Back: Normal inspection. No tenderness. ROM normal. Skin: Skin warm and dry. Normal skin color. Normal skin turgor. Extremities: Abnormal external inspection. Extremity tenderness. Left shoulder: severe tenderness located in the posterior aspect of the shoulder, AC joint and distal clavicle. Limited ROM due to pain (diminished abduction, adduction, flexion, extension and external and internal rotation). Neurovascular intact distally. (pt jumps no matter where I touch it). No erythema, swelling, laceration, abrasion or ecchymosis. No puncture wound, foreign body or deformity. No joint effusion. No shoulder injury. Shoulder otherwise negative. Extremities otherwise negative. Neuro, Vascular and Tendons: Sensation intact. Motor intact. Vascular status intact. Tendon function intact. Tendon visualized, uninjured. Neuro: Oriented X 3. No motor deficit. No sensory deficit. Note: isolated injury to shoulder hx does not correlate with something hitting her shoulder. LABS, X-RAYS, AND EKG X-Rays: Left shoulder negative. Lt Shoulder X-ray: (IMPRESSION: 1. Mild degenerative changes of the left acromioclavicular joint. 2. Otherwise negative left shoulder. Electronically Final signed by:Neeraj Livingston MD 06/30/2016 8:54:57 PM). The X-rays were interpreted by the radiologist and contemporaneously by me. Interpretation time: 21:10. PROGRESS AND PROCEDURES Course of Care: old records reviewed, pt is maxed out on narc/controlled substances here, has met the 3 in 12 months period pt is well known to me. Patient counseled in person regarding the patient's stable condition, test results and diagnosis. 21:11. Differential Diagnosis: I considered fracture, stress fracture, degenerative joint disease, arthritis, rheumatoid arthritis, gout, pseudogout, sprain, dislocation, rotator cuff tear, acromioclavicular separation, soft tissue injury, soft tissue hematoma, tendonitis, myositis, fasciitis and bursitis as a possible cause of upper extremity pain in this patient. This is a partial list of diagnoses considered. (chronic pain issues, substance abuse, psychogenic). Above considerations are based on history, physical exam and X-Ray data. Differential diagnosis was discussed with patient and patient's spouse. Disposition: Discharged home in good and improved condition (21:15). Condition: good and stable. CLINICAL IMPRESSION (L shoulder pain). INSTRUCTIONS Warnings: GENERAL WARNINGS: Return or contact your physician immediately if your condition worsens or changes unexpectedly, if not improving as expected, or if other problems arise. Specifically return if problem worsens. Prescription Medications: Naproxen 500 mg tablets: take 1 orally every 12 hours as needed for pain. Dispense twenty (20). No refills. Follow-up: Follow up with your doctor in about one week as needed. Call for an appointment. Summary of care provided to patient. Understanding of the discharge instructions verbalized. (Electronically signed by Allie Steele A.R.N.P. 06/30/2016 22:24)
--- NOTE | 2016-06-30 21:15 | ED CLINICAL REPORT ---
Clinical Report - Physicians/Mid Levels [place] [address] [place] [address] 06/30/2016 20:17 [id number] Time Seen: 20:27; upon arrival, initial patient contact, initial documentation, patient care assumed. Arrived- By private vehicle. Historian- patient and significant other. HISTORY OF PRESENT ILLNESS Chief Complaint: Injury to left shoulder. The injury happened just prior to arrival about 2 years ago. The patient sustained a light direct blow. ([employer]). ( states a box with a pedestal fan in it fell off [employer] shelf and hit the top of her shoulder). Patient is experiencing severe pain. Patient denies injury to the head or neck. No other injury. ( pt admitted to not getting her mri of her shoulder). REVIEW OF SYSTEMS No swelling, tingling, numbness, weakness or suspected foreign body. No skin laceration. She has had severe joint pain (2 years ago), involving the left shoulder. All systems otherwise negative, except as recorded above. PAST HISTORY See nurses notes. PAST HISTORY Problems: PTSD. Night Terrors. Gastroesophageal Reflux Disease. Bipolar Disorder. Depression. Neuropathy. Anxiety Reaction. Thyroid Disease. Head Injury. Asthma. Diabetes Mellitus. Additional Surgeries: Back Surgery. Cholecystectomy. . Tonsillectomy. Wrist surgery. She has had a prior injury to the same area (has had chronic shoulder pain/issues for 2 years). SOCIAL HISTORY Never smoker. History of occasional drug use: marijuana. No alcohol use. No recent travel. Is a local resident. FAMILY HISTORY No significant family medical history. ADDITIONAL NOTES The nursing notes have been reviewed with agreement regarding the chief complaint, HPI, ROS, PMH and patient medications and allergies. PHYSICAL EXAM Appearance: Alert. Oriented X3. No acute distress. Head: Head atraumatic. Eyes: Pupils equal, round and reactive to light. Eyes normal inspection. Neck: Normal inspection. Neck supple. C-spine non-tender. Respiratory: No respiratory distress. Abdomen: Moderately obese. Back: Normal inspection. No tenderness. ROM normal. Skin: Skin warm and dry. Normal skin color. Normal skin turgor. Extremities: Abnormal external inspection. Extremity tenderness. Left shoulder: severe tenderness located in the posterior aspect of the shoulder, AC joint and distal clavicle. Limited ROM due to pain (diminished abduction, adduction, flexion, extension and external and internal rotation). Neurovascular intact distally. (pt jumps no matter where I touch it). No erythema, swelling, laceration, abrasion or ecchymosis. No puncture wound, foreign body or deformity. No joint effusion. No shoulder injury. Shoulder otherwise negative. Extremities otherwise negative. Neuro, Vascular and Tendons: Sensation intact. Motor intact. Vascular status intact. Tendon function intact. Tendon visualized, uninjured. Neuro: Oriented X 3. No motor deficit. No sensory deficit. Note: isolated injury to shoulder hx does not correlate with something hitting her shoulder. LABS, X-RAYS, AND EKG X-Rays: Left shoulder negative. Lt Shoulder X-ray: (IMPRESSION: 1. Mild degenerative changes of the left acromioclavicular joint. 2. Otherwise negative left shoulder. Electronically Final signed by:Neeraj Livingston MD 06/30/2016 8:54:57 PM). The X-rays were interpreted by the radiologist and contemporaneously by me. Interpretation time: 21:10. PROGRESS AND PROCEDURES Course of Care: old records reviewed, pt is maxed out on narc/controlled substances here, has met the 3 in 12 months period pt is well known to me. Patient counseled in person regarding the patient's stable condition, test results and diagnosis. 21:11. Differential Diagnosis: I considered fracture, stress fracture, degenerative joint disease, arthritis, rheumatoid arthritis, gout, pseudogout, sprain, dislocation, rotator cuff tear, acromioclavicular separation, soft tissue injury, soft tissue hematoma, tendonitis, myositis, fasciitis and bursitis as a possible cause of upper extremity pain in this patient. This is a partial list of diagnoses considered. (chronic pain issues, substance abuse, psychogenic). Above considerations are based on history, physical exam and X-Ray data. Differential diagnosis was discussed with patient and patient's spouse. Disposition: Discharged home in good and improved condition (21:15). Condition: good and stable. CLINICAL IMPRESSION (L shoulder pain). INSTRUCTIONS Warnings: GENERAL WARNINGS: Return or contact your physician immediately if your condition worsens or changes unexpectedly, if not improving as expected, or if other problems arise. Specifically return if problem worsens. Prescription Medications: Naproxen 500 mg tablets: take 1 orally every 12 hours as needed for pain. Dispense twenty (20). No refills. Follow-up: Follow up with your doctor in about one week as needed. Call for an appointment. Summary of care provided to patient. Understanding of the discharge instructions verbalized. (Electronically signed by Allie Steele A.R.N.P. 06/30/2016 22:24)
--- NOTE | 2016-06-30 21:16 | ED ORDER SUMMARY ---
..... Patient: ALLIE SAXENA OrderSheet [facility] VisitID: [id number] [address] [place] [address] 46y, F Registration Date/Time: 06/30/2016 ORDER SHEET Weight: 128.8 kg (stated) Allergies: Ampicillin, Latex, Morphine and Related, Penicillins, Zithromax GENERAL ORDERS: Shoulder 2V or more Left Urgent (20:35 06/30/2016 HBivens A.R.N.P.) (Ack 20:36 [facility] H[facility] Generalist) (20:43 Erick) MEDICATION ORDERS: Toradol IM 60 mg (NOW) (21:15 06/30/2016 HBivens A.R.N.P.) (Ack 21:16 DDavis R.N.) (21:27 DDavis R.N.) IV FLUIDS: ORDER SHEET NOTES: [Electronically signed by Fly Sorensen R.N. (21:29 06/30/2016)] [Electronically signed by Allie SteeleR.N.P. (22:24 06/30/2016)] [Electronically locked/signed by Fly Sorensen R.N. (21:29 06/30/2016)]
--- NOTE | 2016-06-30 21:16 | ED NURSING NOTES ---
Clinical Report - Nurses [facility] [address] [place] [address] 06/30/2016 20:17 [id number] Triage time 20:27. Acuity: LEVEL 4. Chief Complaint: LEFT UPPER EXTREMITY PAIN and TINGLING. Location of symptoms- (Shopping at [employer], was reaching for a fan on a top shelf when a fan fell on her L shoulder. She presents to the ED c/o L shoulder pain. Describes pain as "shooting, sharp pain" and fingers are feeling numb.). Alert. No acute distress. SEPSIS SCREEN: Sepsis Screen: negative. Negative (no infection suspected/documented). --20:33 Nguyễn Mata R.N. 20:26 06/30/16. BP: 102/67 (large adult cuff) taken on the right arm, via an automated monitor, while lying. HR: 97 (normal rate). RR: 16 (regular, unlabored and normal). O2 saturation: 96% on room air. Temp: 97.9 F (oral). Pain level now: 11/11. --20:33 Nguyễn Mata R.N. Weight: 128.8 kg stated. Height/Length: 64 inches Per Patient. BMI: 48.8. --20:26 Nguyễn Mata R.N. Medications Ambien Oral 10 mg, at bedtime. Gabapentin Oral (Tablet 600 mg), 3x a day. Ibuprofen Oral 600 mg, 3x a day. Imaprine 2 tabs, every PM. LamoTRIgine Oral (Tablet Dispersible 50 mg) 2 tablets, daily. Levothyroxine Sodium Oral 137mcg, daily. Lexapro Oral 30 mg, daily. MetFORMIN HCl Oral 1000, 2x a day. Omeprazole Oral 20 mg, 2x a day. Prazosin HCl Oral unknown, at bedtime. Robaxin Oral 750 mg, 3x a day as needed. TraZODone HCl Oral unknown, at bedtime. --20:28 Nguyễn Mata R.N. Meloxicam Oral. --20:28 Nguyễn Mata R.N. Doxycycline Hyclate Oral. --20:29 Nguyễn Mata R.N. Allergies Ampicillin. Latex. Morphine and Related. Penicillins. Zithromax. --20:28 Nguyễn Mata R.N. Medication/allergy information source: the patient. --20:33 Nguyễn Mata R.N. History Arrived by private vehicle. Historian: patient. Accompanied by family. Primary physician (Dr. Dickey). This occurred just prior to arrival. Treatment RADIOLOGY CLERK: Ice and ([employer] gave her ice.). PAST MEDICAL HX: Immunizations: up-to-date. Uses an intrauterine device. SOCIAL HX: Never smoker. History of occasional drug use: marijuana. No alcohol use. She has not traveled outside the [place] The patient was not exposed to MRSA. ABUSE ASSESSMENT: Abuse assessment: The patient was asked "Do you feel safe in your home?" and "Has anyone hurt you or threatened to hurt you?". No report of abuse. SELF HARM ASSESSMENT: A self harm assessment was performed. The patient answered "no" to the question "Do you have thoughts of harming or killing yourself?" and "Have you recently had thoughts about harming or killing others?". FALL RISK ASSESSMENT: Fall risk assessment completed. No fall risk identified. NUTRITIONAL RISK ASSESSMENT: The nutritional risk assessment revealed no deficiencies. FUNCTIONAL ASSESSMENT: Functional assessment: no impairments noted. LEARNING NEEDS ASSESSMENT: The learning needs assessment revealed no barriers. SKIN INTEGRITY ASSESSMENT: Skin integrity risk assessment completed. No skin integrity risk identified. --20:33 Nguyễn Mata R.N. PROBLEMS: Chest Wall Pain. Upper Extremity Pain. Dizziness. Myofascial Strain. PTSD. Night Terrors. Gastroesophageal Reflux Disease. Bipolar Disorder. Depression. Neuropathy. Anxiety Reaction. Fall. Back Pain. Thyroid Disease. Head Injury. Contusion. Asthma. Diabetes Mellitus. --20:29 gNuyễn Mata R.N. Bronchitis and Sinusitis. --20:29 Nguyễn Mata R.N. ADDITIONAL SURGERIES: Back Surgery. Cholecystectomy. . Discectomy for intervertebral herniated disc, nucleus pulposus. Tonsillectomy. Wrist surgery. --20:29 Nguyễn Mata R.N. Assessment GENERAL / NEURO / PSYCH: Alert. Oriented X 4. Appears in no acute distress. Ant Coma Scale: 15- eyes open spontaneously (4); best verbal response- oriented x 4 (5); best motor response- obeys commands (6). Patient appears calm and cooperative. RESPIRATORY: Respirations not labored. SKIN: Skin is warm and dry. --20:33 Nguyễn Mata R.N. Interventions ID and allergy band on patient. To treatment room. --20:33 Nguyễn Mata R.N. NURSING PROGRESS NOTES 21:25 06/30/2016 Toradol (Ketorolac Tromethamine) IM 60 mg given. Given in the left ventral gluteus. Allergies verified and confirmed 5 rights. (pt denies possibility of ). --21:27 Fly Sorensen R.N. DISPOSITION / DISCHARGE Departure time: 21:28. Condition at departure: stable. No learning barriers present. Discharge instructions provided and reviewed with the patient. Reviewed warnings. Reviewed medication(s). Prescription(s) given to the patient. Treatments reviewed. Reviewed referrals for followup. Patient verbalized understanding. Written instructions provided in Macedonian. The patient was discharged home and accompanied by family. She left the Emergency Department ambulatory and via private vehicle. Spouse driving. --21:29 Fly Sorensen R.N. :27 06/30/16. BP: 115/67. HR: 96. RR: 20 (regular and unlabored). O2 saturation: 95% on room air. Pain level now: 08/11. --21:29 Fly Sorensen R.N. Locked/Released at 06/30/2016 21:29 by Fly Sorensen R.N.
--- NOTE | 2016-06-30 21:16 | ED ORDER SUMMARY ---
..... Patient: ALLIE SAXENA OrderSheet [facility] VisitID: [id number] [address] [place] [address] 46y, F Registration Date/Time: 06/30/2016 ORDER SHEET Weight: 128.8 kg (stated) Allergies: Ampicillin, Latex, Morphine and Related, Penicillins, Zithromax GENERAL ORDERS: Shoulder 2V or more Left Urgent (20:35 06/30/2016 HBivens A.R.N.P.) (Ack 20:36 [facility] Telegraph Operator) (20:43 Erick) MEDICATION ORDERS: Toradol IM 60 mg (NOW) (21:15 06/30/2016 HBivens A.R.N.P.) (Ack 21:16 DDavis R.N.) (21:27 DDavis R.N.) IV FLUIDS: ORDER SHEET NOTES: [Electronically signed by Fly Sorensen R.N. (21:29 06/30/2016)] [Electronically signed by Allie SteeleR.N.P. (22:24 06/30/2016)] [Electronically locked/signed by Fly Sorensen R.N. (21:29 06/30/2016)]
--- NOTE | 2016-06-30 21:16 | ED NURSING NOTES ---
Clinical Report - Nurses [facility] [address] [place] [address] 06/30/2016 20:17 [id number] Triage time 20:27. Acuity: LEVEL 4. Chief Complaint: LEFT UPPER EXTREMITY PAIN and TINGLING. Location of symptoms- (Shopping at [employer], was reaching for a fan on a top shelf when a fan fell on her L shoulder. She presents to the ED c/o L shoulder pain. Describes pain as "shooting, sharp pain" and fingers are feeling numb.). Alert. No acute distress. SEPSIS SCREEN: Sepsis Screen: negative. Negative (no infection suspected/documented). --20:33 Nguyễn Mata R.N. 20:26 06/30/16. BP: 102/67 (large adult cuff) taken on the right arm, via an automated monitor, while lying. HR: 97 (normal rate). RR: 16 (regular, unlabored and normal). O2 saturation: 96% on room air. Temp: 97.9 F (oral). Pain level now: 11/11. --20:33 Nguyễn Mata R.N. Weight: 128.8 kg stated. Height/Length: 64 inches Per Patient. BMI: 48.8. --20:26 Nguyễn Mata R.N. Medications Ambien Oral 10 mg, at bedtime. Gabapentin Oral (Tablet 600 mg), 3x a day. Ibuprofen Oral 600 mg, 3x a day. Imaprine 2 tabs, every PM. LamoTRIgine Oral (Tablet Dispersible 50 mg) 2 tablets, daily. Levothyroxine Sodium Oral 137mcg, daily. Lexapro Oral 30 mg, daily. MetFORMIN HCl Oral 1000, 2x a day. Omeprazole Oral 20 mg, 2x a day. Prazosin HCl Oral unknown, at bedtime. Robaxin Oral 750 mg, 3x a day as needed. TraZODone HCl Oral unknown, at bedtime. --20:28 Nguyễn Mata R.N. Meloxicam Oral. --20:28 Nguyễn Mata R.N. Doxycycline Hyclate Oral. --20:29 Nguyễn Mata R.N. Allergies Ampicillin. Latex. Morphine and Related. Penicillins. Zithromax. --20:28 Nguyễn Mata R.N. Medication/allergy information source: the patient. --20:33 Nguyễn Mata R.N. History Arrived by private vehicle. Historian: patient. Accompanied by family. Primary physician (Dr. Dickey). This occurred just prior to arrival. Treatment MANAGER NURSING: Ice and (Azuna gave her ice.). PAST MEDICAL HX: Immunizations: up-to-date. Uses an intrauterine device. SOCIAL HX: Never smoker. History of occasional drug use: marijuana. No alcohol use. She has not traveled outside the [place] The patient was not exposed to MRSA. ABUSE ASSESSMENT: Abuse assessment: The patient was asked "Do you feel safe in your home?" and "Has anyone hurt you or threatened to hurt you?". No report of abuse. SELF HARM ASSESSMENT: A self harm assessment was performed. The patient answered "no" to the question "Do you have thoughts of harming or killing yourself?" and "Have you recently had thoughts about harming or killing others?". FALL RISK ASSESSMENT: Fall risk assessment completed. No fall risk identified. NUTRITIONAL RISK ASSESSMENT: The nutritional risk assessment revealed no deficiencies. FUNCTIONAL ASSESSMENT: Functional assessment: no impairments noted. LEARNING NEEDS ASSESSMENT: The learning needs assessment revealed no barriers. SKIN INTEGRITY ASSESSMENT: Skin integrity risk assessment completed. No skin integrity risk identified. --20:33 Nguyễn Mata R.N. PROBLEMS: Chest Wall Pain. Upper Extremity Pain. Dizziness. Myofascial Strain. PTSD. Night Terrors. Gastroesophageal Reflux Disease. Bipolar Disorder. Depression. Neuropathy. Anxiety Reaction. Fall. Back Pain. Thyroid Disease. Head Injury. Contusion. Asthma. Diabetes Mellitus. --20:29 Nguyễn Mata R.N. Bronchitis and Sinusitis. --20:29 Nguyễn Mata R.N. ADDITIONAL SURGERIES: Back Surgery. Cholecystectomy. . Discectomy for intervertebral herniated disc, nucleus pulposus. Tonsillectomy. Wrist surgery. --20:29 Nguyễn Maat R.N. Assessment GENERAL / NEURO / PSYCH: Alert. Oriented X 4. Appears in no acute distress. Ant Coma Scale: 15- eyes open spontaneously (4); best verbal response- oriented x 4 (5); best motor response- obeys commands (6). Patient appears calm and cooperative. RESPIRATORY: Respirations not labored. SKIN: Skin is warm and dry. --20:33 Nguyễn Mata R.N. Interventions ID and allergy band on patient. To treatment room. --20:33 Nguyễn Mata R.N. NURSING PROGRESS NOTES 21:25 06/30/2016 Toradol (Ketorolac Tromethamine) IM 60 mg given. Given in the left ventral gluteus. Allergies verified and confirmed 5 rights. (pt denies possibility of ). --21:27 Fly Sorensen R.N. DISPOSITION / DISCHARGE Departure time: 21:28. Condition at departure: stable. No learning barriers present. Discharge instructions provided and reviewed with the patient. Reviewed warnings. Reviewed medication(s). Prescription(s) given to the patient. Treatments reviewed. Reviewed referrals for followup. Patient verbalized understanding. Written instructions provided in Yakut. The patient was discharged home and accompanied by family. She left the Emergency Department ambulatory and via private vehicle. Spouse driving. --21:29 Fly Sorensen R.N. :27 06/30/16. BP: 115/67. HR: 96. RR: 20 (regular and unlabored). O2 saturation: 95% on room air. Pain level now: 08/11. --21:29 Fly Sorensen R.N. Locked/Released at 06/30/2016 21:29 by Fly Sorensen R.N.
--- NOTE | 2016-06-30 22:25 | ED MED RECONCILIATION SUMMARY ---
Patient: ALLIE SAXENA Medication Reconciliation Report [facility] VisitID: [id number] [address] [place] [address] 46y, F Registration Date/Time: 06/30/2016 Weight: 128.8 kg Height/Length: 64 in. BMI: 48.8 ALLERGIES: Ampicillin, Latex, Morphine and Related, Penicillins, Zithromax The patient's Home Medications are listed below: THE FOLLOWING MEDICATIONS NEED TO BE RECONCILED: Ambien Oral 10 mg, at bedtime Doxycycline Hyclate Oral Gabapentin Oral (600 mg), 3x a day Ibuprofen Oral 600 mg, 3x a day Imaprine 2 tabs, every PM LamoTRIgine Oral (50 mg) 2 tablets, daily Levothyroxine Sodium Oral 137mcg, daily Lexapro Oral 30 mg, daily Meloxicam Oral MetFORMIN HCl Oral 1000, 2x a day Omeprazole Oral 20 mg, 2x a day Prazosin HCl Oral unknown, at bedtime Robaxin Oral 750 mg, 3x a day TraZODone HCl Oral unknown, at bedtime The source(s) of the original Home Medication information: patient The following Medications were given to the patient in the Emergency Department: Toradol [IM] IM 60 mg, administered: 06/30/2016 9:25:00 PM The following Medications were prescribed to the patient: Naproxen 500 mg tablets: take 1 orally every 12 hours as needed for pain. Dispense twenty (20). No refills. -- Allie Steele A.R.N.P.
--- NOTE | 2016-06-30 22:25 | ED MED RECONCILIATION SUMMARY ---
Patient: ALLIE SAXENA Medication Reconciliation Report [facility] VisitID: [id number] [address] [place] [address] 46y, F Registration Date/Time: 06/30/2016 Weight: 128.8 kg Height/Length: 64 in. BMI: 48.8 ALLERGIES: Ampicillin, Latex, Morphine and Related, Penicillins, Zithromax The patient's Home Medications are listed below: THE FOLLOWING MEDICATIONS NEED TO BE RECONCILED: Ambien Oral 10 mg, at bedtime Doxycycline Hyclate Oral Gabapentin Oral (600 mg), 3x a day Ibuprofen Oral 600 mg, 3x a day Imaprine 2 tabs, every PM LamoTRIgine Oral (50 mg) 2 tablets, daily Levothyroxine Sodium Oral 137mcg, daily Lexapro Oral 30 mg, daily Meloxicam Oral MetFORMIN HCl Oral 1000, 2x a day Omeprazole Oral 20 mg, 2x a day Prazosin HCl Oral unknown, at bedtime Robaxin Oral 750 mg, 3x a day TraZODone HCl Oral unknown, at bedtime The source(s) of the original Home Medication information: patient The following Medications were given to the patient in the Emergency Department: Toradol [IM] IM 60 mg, administered: 06/30/2016 9:25:00 PM The following Medications were prescribed to the patient: Naproxen 500 mg tablets: take 1 orally every 12 hours as needed for pain. Dispense twenty (20). No refills. -- Allie Steele A.R.N.P.
--- NOTE | 2016-06-30 22:25 | ED MAR SUMMARY ---
..... Medication Administration Record [facility] [address] [place] [address] Patient: ELIDIA SAXENA Visit ID: [id number] 46y, F Weight: 128.8 kg Height/Length: 64 in BMI: 48.8 ALLERGIES: Ampicillin, Latex, Morphine and Related, Penicillins, Zithromax Given 21:25 06/30/2016 Fly Sorensen R.N. Medication Administered: TORADOL [IM] (KETOROLAC TROMETHAMINE), Dose: 60 mg IM. Medication Ordered: Toradol IM 60 mg (NOW).
--- NOTE | 2016-06-30 22:25 | ED DISCHARGE INSTRUCTIONS ---
Patient: ALLIE SAXENA General Instructions [facility] VisitID: [id number] [place] [address] 46y, F Registration Date/Time: 06/30/2016 (L shoulder pain). INSTRUCTIONS Warnings: GENERAL WARNINGS: Return or contact your physician immediately if your condition worsens or changes unexpectedly, if not improving as expected, or if other problems arise. Specifically return if problem worsens. Prescription Medications: Naproxen 500 mg tablets: take 1 orally every 12 hours as needed for pain. Dispense twenty (20). No refills. Follow-up: Follow up with your doctor in about one week as needed. Call for an appointment. Summary of care provided to patient. Understanding of the discharge instructions verbalized. ADDITIONAL INFORMATION Naproxen Sodium Oral tablet What is this medicine? NAPROXEN (na PROX en) is a non-steroidal anti-inflammatory drug (NSAID). It is used to reduce swelling and to treat pain. This medicine may be used for dental pain, headache, or painful monthly periods. It is also used for painful joint and muscular problems such as arthritis, tendinitis, bursitis, and gout. How should I use this medicine? Take this medicine by mouth with a glass of water. Follow the directions on the prescription label. Take it with food if your stomach gets upset. Try to not lie down for at least 10 minutes after you take it. Take your medicine at regular intervals. Do not take your medicine more often than directed. Long-term, continuous use may increase the risk of heart attack or stroke. A special MedGuide will be given to you by the pharmacist with each prescription and refill. Be sure to read this information carefully each time. Talk to your assistant professor of sociology regarding the use of this medicine in children. Special care may be needed. What side effects may I notice from receiving this medicine? Side effects that you should report to your doctor or health day care provider as soon as possible: black or bloody stools, blood in the urine or vomit blurred vision chest pain difficulty breathing or wheezing nausea or vomiting severe stomach pain skin rash, skin redness, blistering or peeling skin, hives, or itching slurred speech or weakness on one side of the body swelling of eyelids, throat, lips unexplained weight gain or swelling unusually weak or tired yellowing of eyes or skin Side effects that usually do not require medical attention (report to your doctor or health day care provider if they continue or are bothersome): constipation headache heartburn What may interact with this medicine? alcohol aspirin cidofovir diuretics lithium methotrexate other drugs for inflammation like ketorolac or prednisone pemetrexed probenecid warfarin What if I miss a dose? If you miss a dose, take it as soon as you can. If it is almost time for your next dose, take only that dose. Do not take double or extra doses. Where should I keep my medicine? Keep out of the reach of children. Store at room temperature between 15 and 30 degrees C (59 and 86 degrees F). Keep container tightly closed. Throw away any unused medicine after the expiration date. What should I tell my health care provider before I take this medicine? They need to know if you have any of these conditions: asthma cigarette smoker drink more than 3 alcohol containing drinks a day heart disease or circulation problems such as heart failure or leg edema (fluid retention) high blood pressure kidney disease liver disease stomach bleeding or ulcers an unusual or allergic reaction to naproxen, aspirin, other NSAIDs, other medicines, foods, dyes, or preservatives or trying to get breast-feeding What should I watch for while using this medicine? Tell your doctor or health day care provider if your pain does not get better. Talk to your doctor before taking another medicine for pain. Do not treat yourself. This medicine does not prevent heart attack or stroke. In fact, this medicine may increase the chance of a heart attack or stroke. The chance may increase with longer use of this medicine and in people who have heart disease. If you take aspirin to prevent heart attack or stroke, talk with your doctor or health day care provider. Do not take other medicines that contain aspirin, ibuprofen, or naproxen with this medicine. Side effects such as stomach upset, nausea, or ulcers may be more likely to occur. Many medicines available without a prescription should not be taken with this medicine. This medicine can cause ulcers and bleeding in the stomach and intestines at any time during treatment. Do not smoke cigarettes or drink alcohol. These increase irritation to your stomach and can make it more susceptible to damage from this medicine. Ulcers and bleeding can happen without warning symptoms and can cause . You may get drowsy or dizzy. Do not drive, use machinery, or do anything that needs mental alertness until you know how this medicine affects you. Do not stand or sit up quickly, especially if you are an older patient. This reduces the risk of dizzy or fainting spells. This medicine can cause you to bleed more easily. Try to avoid damage to your teeth and gums when you brush or floss your teeth. You have been given the following additional information: Naproxen Sodium Oral tablet (Electronically signed by Allie Steele A.R.NDavis 06/30/2016 22:24)
--- NOTE | 2016-06-30 22:25 | ED MAR SUMMARY ---
..... Medication Administration Record [facility] [address] [place] [address] Patient: ELIDIA SAXENA Visit ID: [id number] 46y, F Weight: 128.8 kg Height/Length: 64 in BMI: 48.8 ALLERGIES: Ampicillin, Latex, Morphine and Related, Penicillins, Zithromax Given 21:25 06/30/2016 Fly Sorensen R.N. Medication Administered: TORADOL [IM] (KETOROLAC TROMETHAMINE), Dose: 60 mg IM. Medication Ordered: Toradol IM 60 mg (NOW).
--- NOTE | 2016-06-30 22:25 | ED DISCHARGE INSTRUCTIONS ---
Patient: ALLIE SAXENA General Instructions [facility] VisitID: [id number] [place] [address] 46y, F Registration Date/Time: 06/30/2016 (L shoulder pain). INSTRUCTIONS Warnings: GENERAL WARNINGS: Return or contact your physician immediately if your condition worsens or changes unexpectedly, if not improving as expected, or if other problems arise. Specifically return if problem worsens. Prescription Medications: Naproxen 500 mg tablets: take 1 orally every 12 hours as needed for pain. Dispense twenty (20). No refills. Follow-up: Follow up with your doctor in about one week as needed. Call for an appointment. Summary of care provided to patient. Understanding of the discharge instructions verbalized. ADDITIONAL INFORMATION Naproxen Sodium Oral tablet What is this medicine? NAPROXEN (na PROX en) is a non-steroidal anti-inflammatory drug (NSAID). It is used to reduce swelling and to treat pain. This medicine may be used for dental pain, headache, or painful monthly periods. It is also used for painful joint and muscular problems such as arthritis, tendinitis, bursitis, and gout. How should I use this medicine? Take this medicine by mouth with a glass of water. Follow the directions on the prescription label. Take it with food if your stomach gets upset. Try to not lie down for at least 10 minutes after you take it. Take your medicine at regular intervals. Do not take your medicine more often than directed. Long-term, continuous use may increase the risk of heart attack or stroke. A special MedGuide will be given to you by the pharmacist with each prescription and refill. Be sure to read this information carefully each time. Talk to your magistrate assistant regarding the use of this medicine in children. Special care may be needed. What side effects may I notice from receiving this medicine? Side effects that you should report to your doctor or health laboratory animal caretaker as soon as possible: black or bloody stools, blood in the urine or vomit blurred vision chest pain difficulty breathing or wheezing nausea or vomiting severe stomach pain skin rash, skin redness, blistering or peeling skin, hives, or itching slurred speech or weakness on one side of the body swelling of eyelids, throat, lips unexplained weight gain or swelling unusually weak or tired yellowing of eyes or skin Side effects that usually do not require medical attention (report to your doctor or health laboratory animal caretaker if they continue or are bothersome): constipation headache heartburn What may interact with this medicine? alcohol aspirin cidofovir diuretics lithium methotrexate other drugs for inflammation like ketorolac or prednisone pemetrexed probenecid warfarin What if I miss a dose? If you miss a dose, take it as soon as you can. If it is almost time for your next dose, take only that dose. Do not take double or extra doses. Where should I keep my medicine? Keep out of the reach of children. Store at room temperature between 15 and 30 degrees C (59 and 86 degrees F). Keep container tightly closed. Throw away any unused medicine after the expiration date. What should I tell my health care provider before I take this medicine? They need to know if you have any of these conditions: asthma cigarette smoker drink more than 3 alcohol containing drinks a day heart disease or circulation problems such as heart failure or leg edema (fluid retention) high blood pressure kidney disease liver disease stomach bleeding or ulcers an unusual or allergic reaction to naproxen, aspirin, other NSAIDs, other medicines, foods, dyes, or preservatives or trying to get breast-feeding What should I watch for while using this medicine? Tell your doctor or health laboratory animal caretaker if your pain does not get better. Talk to your doctor before taking another medicine for pain. Do not treat yourself. This medicine does not prevent heart attack or stroke. In fact, this medicine may increase the chance of a heart attack or stroke. The chance may increase with longer use of this medicine and in people who have heart disease. If you take aspirin to prevent heart attack or stroke, talk with your doctor or health laboratory animal caretaker. Do not take other medicines that contain aspirin, ibuprofen, or naproxen with this medicine. Side effects such as stomach upset, nausea, or ulcers may be more likely to occur. Many medicines available without a prescription should not be taken with this medicine. This medicine can cause ulcers and bleeding in the stomach and intestines at any time during treatment. Do not smoke cigarettes or drink alcohol. These increase irritation to your stomach and can make it more susceptible to damage from this medicine. Ulcers and bleeding can happen without warning symptoms and can cause . You may get drowsy or dizzy. Do not drive, use machinery, or do anything that needs mental alertness until you know how this medicine affects you. Do not stand or sit up quickly, especially if you are an older patient. This reduces the risk of dizzy or fainting spells. This medicine can cause you to bleed more easily. Try to avoid damage to your teeth and gums when you brush or floss your teeth. You have been given the following additional information: Naproxen Sodium Oral tablet (Electronically signed by Allie Steele A.R.NDavis 06/30/2016 22:24)
== END 2016-06-30 21:30 | disposition home or self-care (01) ==
LOC: ED SRH 20:17
DX: M25.512 Pain in left shoulder (principal); W20.8XXA Other cause of strike by thrown, projected or falling object, initial encounter; Y92.512 Supermarket, store or market as the place of occurrence of the external cause; E11.40 Type 2 diabetes mellitus with diabetic neuropathy, unspecified; Z79.84 Long term (current) use of oral hypoglycemic drugs; Z79.899 Other long term (current) drug therapy; Z88.0 Allergy status to penicillin

== ENCOUNTER 2016-07-24 21:15 | Emergency (ER) | payer MEDICARE, OTHER ==
--- NOTE | 2016-07-24 21:57 | ED NURSING NOTES ---
Clinical Report - Nurses [facility] [address] [place] [address] 07/24/2016 21:15 Patient: ELIDIA SAXENA TRIAGE Triage time 21:30. Acuity: LEVEL 4. Chief Complaint: INJURY TO LEFT SHOULDER. Alert. No acute distress. CHERELLE COMA SCORE: [place] Coma Scale: 15- eyes open spontaneously (4); best verbal response- oriented x 4 (5); best motor response- obeys commands (6). --21:40 Bety Rivera R.N. 21:33 07/24/16. BP: 119/61. HR: 92. RR: 18. O2 saturation: 98% on room air. Temp: 98 F (oral). Pain level now: 09/10. --21:40 Bety Rivera R.N. Weight: 128.8 kg stated. Height/Length: 68 inches Per Patient. BMI: 43.2. --21:33 Bety Rivera R.N. Medications Ambien Oral 10 mg, at bedtime. Doxycycline Hyclate Oral. Gabapentin Oral (Tablet 600 mg), 3x a day. Ibuprofen Oral 600 mg, 3x a day. Imaprine 2 tabs, every PM. LamoTRIgine Oral (Tablet Dispersible 50 mg) 2 tablets, daily. Levothyroxine Sodium Oral 137mcg, daily. Lexapro Oral 30 mg, daily. Meloxicam Oral. MetFORMIN HCl Oral 1000, 2x a day. Omeprazole Oral 20 mg, 2x a day. Prazosin HCl Oral unknown, at bedtime. Robaxin Oral 750 mg, 3x a day as needed. --21:31 Bety Rivera R.N. TraZODone HCl Oral unknown, at bedtime. --21:31 Bety Rivera R.N. Medication/allergy information source: other. --21:40 Bety Rivera R.N. Allergies Ampicillin. Latex. Morphine and Related. Penicillins. Zithromax. --21:31 Bety Rivera R.N. History Arrived by private vehicle. Historian: patient. Accompanied by family. Primary physician (Gilberto). This occurred (about 1 month ago). Mechanism of injury: a blow (merchandise fell onher). PAST MEDICAL HX: The patient is post-menopausal. SOCIAL HX: Never smoker. History of occasional drug use: marijuana. No alcohol use. FALL RISK ASSESSMENT: Fall risk assessment completed. No fall risk identified. FUNCTIONAL ASSESSMENT: Functional assessment: no impairments noted. LEARNING NEEDS ASSESSMENT: The learning needs assessment revealed no barriers. --21:40 Bety Rivera R.N. PROBLEMS: Prior Injury, Same Area. Bronchitis and Sinusitis. Chest Wall Pain. Upper Extremity Pain. Dizziness. Myofascial Strain. PTSD. Night Terrors. Gastroesophageal Reflux Disease. Bipolar Disorder. Depression. Neuropathy. Anxiety Reaction. Fall. Back Pain. Thyroid Disease. Head Injury. Contusion. Asthma. Diabetes Mellitus. --21:31 Bety Rivera R.N. ADDITIONAL SURGERIES: Back Surgery. Cholecystectomy. . Discectomy for intervertebral herniated disc, nucleus pulposus. Tonsillectomy. Wrist surgery. --21:31 Bety Rivera R.N. Assessment GENERAL / NEURO / PSYCH: Alert. Oriented X 4. Appears in no acute distress. Patient appears calm and cooperative. RESPIRATORY: Respirations not labored. SKIN: Skin is warm and dry. --21:40 Bety Rivera R.N. Interventions ID and allergy band on patient. To treatment room. --21:40 Bety Rivera R.N. PHYSICAL ASSESSMENT 21:41 07/24/16. Ambulatory to room. GENERAL / NEURO / PSYCH: Oriented X 4. Alert. Appears in no acute distress. SKIN: Skin is warm and dry. --21:41 Bety Rivera R.N. NURSING PROGRESS NOTES 21:41 07/24/16. Call light placed in reach. Side rails up x 1. Bed placed in lowest position. Brakes of bed on. --21:41 Bety Rivera R.N. 21:55 07/24/2016 Toradol (Ketorolac Tromethamine) IM 60 mg given. Given in the left ventral gluteus. Allergies verified and confirmed 5 rights. --21:55 Bety Rivera R.N. 21:55 07/24/16. Point of care testing: performed by nurse. Glucose: 115. Result shown to the PA. --21:55 Bety Rivera R.N. 22:00. The patient is resting quietly. Overall patient status is the same- she states feels the same. GENERAL / NEURO / PSYCH: Alert. Oriented X 4. RESPIRATORY: No respiratory distress. SKIN: Skin is warm and dry. --22:07 Bety Rivera R.N. DISPOSITION / DISCHARGE Departure time: 2200. Condition at departure: stable. No learning barriers present. Discharge instructions provided and reviewed with the patient. Patient verbalized understanding. Written instructions provided in Japanese. The patient was discharged home and accompanied by family. She left the Emergency Department ambulatory. FALL RISK ASSESSMENT: Fall risk assessment completed. No fall risk identified. --22:06 Bety Rivera R.N. 22:05 07/24/16. Pain level now: 4/10. Additional comments: here under an hour. --22:06 Bety Rivera R.N. Locked/Released at 07/24/2016 22:07 by Bety Rivera R.N.
--- NOTE | 2016-07-24 21:57 | ED ORDER SUMMARY ---
..... Patient: ELIDIA SAXENA OrderSheet [facility] VisitID: [id number] [address] [place] [address] 46y, F Registration Date/Time: 07/24/2016 ORDER SHEET Weight: 128.8 kg (stated) Allergies: Ampicillin, Latex, Morphine and Related, Penicillins, Zithromax GENERAL ORDERS: POC Glucose (21:38 07/24/2016 Paris P.A.-C) (Ack 21:42 Ish R.N.) (21:55 Ish R.N.) MEDICATION ORDERS: Toradol IM 60 mg (NOW) (21:37 07/24/2016 [place] P.A.-C) (Ack 21:42 Ish R.N.) (21:55 Ish R.N.) IV FLUIDS: ORDER SHEET NOTES: [Electronically signed by Sherron Watson P.A.-C (22:07/24/2016)] [Electronically signed by Bety Rivera R.N. (22:07 07/24/2016)] [Electronically locked/signed by Bety Rivera R.N. (22:07/24/2016)]
--- NOTE | 2016-07-24 21:57 | ED CLINICAL REPORT ---
Clinical Report - Physicians/Mid Levels [place] [address] [place] [address] 07/24/2016 21:15 [id number] Time Seen: 22:04 Jul 24 2016. Arrived- By private vehicle. Historian- patient. HISTORY OF PRESENT ILLNESS Chief Complaint: Injury to left shoulder. The injury happened 1 months. Patient is experiencing moderate pain. Patient denies injury to the head or neck. ( Patient reports a display was dropped onto her shoulder, she's been having pain over the last month. Reports previous ER visit, as well as primary care provider visit, and is awaiting physical therapy. Previous x-ray with no signs of acute fracture. Patient reports pain worsening over the last few days, worsening today. The same pain she has been having. She denies any shortness of breath, chest pain. Patient denies any paresthesias, reports pain is on the proximal aspect of her shoulder, worsens with movement. No new symptoms or pain quality over the last week.). REVIEW OF SYSTEMS No skin laceration. All systems otherwise negative, except as recorded above. PAST HISTORY The patient's dominant hand is the right. She has had a prior injury to the same area. Problems: Bronchitis and Sinusitis. Chest Wall Pain. Upper Extremity Pain. Dizziness. Myofascial Strain. PTSD. Night Terrors. Gastroesophageal Reflux Disease. Bipolar Disorder. Depression. Neuropathy. Anxiety Reaction. Fall. Back Pain. Thyroid Disease. Head Injury. Contusion. Asthma. Diabetes Mellitus. Additional Surgeries: Back Surgery. Cholecystectomy. . Discectomy for intervertebral herniated disc, nucleus pulposus. Tonsillectomy. Wrist surgery. Medications: TraZODone HCl Oral unknown, at bedtime. Ambien Oral 10 mg, at bedtime. Doxycycline Hyclate Oral. Gabapentin Oral (Tablet 600 mg), 3x a day. Ibuprofen Oral 600 mg, 3x a day. Imaprine 2 tabs, every PM. LamoTRIgine Oral (Tablet Dispersible 50 mg) 2 tablets, daily. Levothyroxine Sodium Oral 137mcg, daily. Lexapro Oral 30 mg, daily. Meloxicam Oral. MetFORMIN HCl Oral 1000, 2x a day. Omeprazole Oral 20 mg, 2x a day. Prazosin HCl Oral unknown, at bedtime. Robaxin Oral 750 mg, 3x a day as needed. Allergies: Ampicillin. Latex. Morphine and Related. Penicillins. Zithromax. SOCIAL HISTORY Never smoker. History of drug use: marijuana. No alcohol use. ADDITIONAL NOTES The nursing notes have been reviewed. PHYSICAL EXAM Vital Signs: 07/24/2016 21:33 BP: 119/61. HR: 92. RR: 18. O2 saturation: 98%. Temp: 98 F. Pain level now: 09/10. Appearance: Alert. CVS: Normal heart rate and rhythm. Heart sounds normal. Respiratory: No respiratory distress. Breath sounds normal. Extremities: Left scapula area: No tenderness or swelling. Left shoulder: mild tenderness. Limited ROM due to pain (diminished abduction and external rotation). No ecchymosis. Left acromio-clavicular joint: mild tenderness. No swelling, abrasion or deformity. Mildly decreased range of motion left shoulder with limited abduction. Shoulder held in adduction, internal rotation and flexion. Neuro, Vascular and Tendons: Motor intact. Tendon function intact. Capillary refill not prolonged. PROGRESS AND PROCEDURES Course of Care: She reports previous injections worked well for her. She is to follow-up with physical therapy. No new systemic symptoms, and I do not suspect acute coronary symptoms, PE or any other acute systemic concerns, this is the same injury she has had, the same pain. Pain worsens with Any movement. Encouraged patient follow up with orthopedics in addition to physical therapy. Patient with no new fall. No paresthesias good distal sensation. Good distal field technical support consultant strength. Full range of motion of the elbow. Patient is stable. Symptoms better. Patient/family counseled. Disposition: Discharged. Condition: good. CLINICAL IMPRESSION Sprain of the left rotator cuff. Well controlled type 2 diabetes. INSTRUCTIONS Apply ice. Understanding of the discharge instructions verbalized. Follow-up with: [facility], , [address], , [place], [address] Follow up. Call for the next available appointment. (Electronically signed by Sherron Watson P.A.-C 07/24/2016 22:07)
--- NOTE | 2016-07-24 21:57 | ED CLINICAL REPORT ---
Clinical Report - Physicians/Mid Levels [place] [address] [place] [address] 07/24/2016 21:15 [id number] Time Seen: 22:04 Jul 24 2016. Arrived- By private vehicle. Historian- patient. HISTORY OF PRESENT ILLNESS Chief Complaint: Injury to left shoulder. The injury happened 1 months. Patient is experiencing moderate pain. Patient denies injury to the head or neck. ( Patient reports a display was dropped onto her shoulder, she's been having pain over the last month. Reports previous ER visit, as well as primary care provider visit, and is awaiting physical therapy. Previous x-ray with no signs of acute fracture. Patient reports pain worsening over the last few days, worsening today. The same pain she has been having. She denies any shortness of breath, chest pain. Patient denies any paresthesias, reports pain is on the proximal aspect of her shoulder, worsens with movement. No new symptoms or pain quality over the last week.). REVIEW OF SYSTEMS No skin laceration. All systems otherwise negative, except as recorded above. PAST HISTORY The patient's dominant hand is the right. She has had a prior injury to the same area. Problems: Bronchitis and Sinusitis. Chest Wall Pain. Upper Extremity Pain. Dizziness. Myofascial Strain. PTSD. Night Terrors. Gastroesophageal Reflux Disease. Bipolar Disorder. Depression. Neuropathy. Anxiety Reaction. Fall. Back Pain. Thyroid Disease. Head Injury. Contusion. Asthma. Diabetes Mellitus. Additional Surgeries: Back Surgery. Cholecystectomy. . Discectomy for intervertebral herniated disc, nucleus pulposus. Tonsillectomy. Wrist surgery. Medications: TraZODone HCl Oral unknown, at bedtime. Ambien Oral 10 mg, at bedtime. Doxycycline Hyclate Oral. Gabapentin Oral (Tablet 600 mg), 3x a day. Ibuprofen Oral 600 mg, 3x a day. Imaprine 2 tabs, every PM. LamoTRIgine Oral (Tablet Dispersible 50 mg) 2 tablets, daily. Levothyroxine Sodium Oral 137mcg, daily. Lexapro Oral 30 mg, daily. Meloxicam Oral. MetFORMIN HCl Oral 1000, 2x a day. Omeprazole Oral 20 mg, 2x a day. Prazosin HCl Oral unknown, at bedtime. Robaxin Oral 750 mg, 3x a day as needed. Allergies: Ampicillin. Latex. Morphine and Related. Penicillins. Zithromax. SOCIAL HISTORY Never smoker. History of drug use: marijuana. No alcohol use. ADDITIONAL NOTES The nursing notes have been reviewed. PHYSICAL EXAM Vital Signs: 07/24/2016 21:33 BP: 119/61. HR: 92. RR: 18. O2 saturation: 98%. Temp: 98 F. Pain level now: 09/10. Appearance: Alert. CVS: Normal heart rate and rhythm. Heart sounds normal. Respiratory: No respiratory distress. Breath sounds normal. Extremities: Left scapula area: No tenderness or swelling. Left shoulder: mild tenderness. Limited ROM due to pain (diminished abduction and external rotation). No ecchymosis. Left acromio-clavicular joint: mild tenderness. No swelling, abrasion or deformity. Mildly decreased range of motion left shoulder with limited abduction. Shoulder held in adduction, internal rotation and flexion. Neuro, Vascular and Tendons: Motor intact. Tendon function intact. Capillary refill not prolonged. PROGRESS AND PROCEDURES Course of Care: She reports previous injections worked well for her. She is to follow-up with physical therapy. No new systemic symptoms, and I do not suspect acute coronary symptoms, PE or any other acute systemic concerns, this is the same injury she has had, the same pain. Pain worsens with Any movement. Encouraged patient follow up with orthopedics in addition to physical therapy. Patient with no new fall. No paresthesias good distal sensation. 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 Full range of motion of the elbow. Patient is stable. Symptoms better. Patient/family counseled. Disposition: Discharged. Condition: good. CLINICAL IMPRESSION Sprain of the left rotator cuff. Well controlled type 2 diabetes. INSTRUCTIONS Apply ice. Understanding of the discharge instructions verbalized. Follow-up with: [facility], , [address], , [place], [address] Follow up. Call for the next available appointment. (Electronically signed by Sherron Watson P.A.-C 07/24/2016 22:07)
--- NOTE | 2016-07-24 21:57 | ED ORDER SUMMARY ---
..... Patient: ELIDIA SAXENA OrderSheet [facility] VisitID: [id number] [address] [place] [address] 46y, F Registration Date/Time: 07/24/2016 ORDER SHEET Weight: 128.8 kg (stated) Allergies: Ampicillin, Latex, Morphine and Related, Penicillins, Zithromax GENERAL ORDERS: POC Glucose (21:38 07/24/2016 [place] P.A.-C) (Ack 21:42 Ish R.N.) (21:55 Ish R.N.) MEDICATION ORDERS: Toradol IM 60 mg (NOW) (21:37 07/24/2016 [place] P.A.-C) (Ack 21:42 Ish R.N.) (21:55 Ish R.N.) IV FLUIDS: ORDER SHEET NOTES: [Electronically signed by Sherron Watson P.A.-C (22:07/24/2016)] [Electronically signed by Bety Rivera R.N. (22:07 07/24/2016)] [Electronically locked/signed by Bety Rivera R.N. (22:07/24/2016)]
--- NOTE | 2016-07-24 22:08 | ED MED RECONCILIATION SUMMARY ---
Patient: ELIDIA SAXENA Medication Reconciliation Report [facility] VisitID: [id number] [address] [place] [address] 46y, F Registration Date/Time: 07/24/2016 Weight: 128.8 kg Height/Length: 68 in. BMI: 43.2 ALLERGIES: Ampicillin, Latex, Morphine and Related, Penicillins, Zithromax The patient's Home Medications are listed below: THE FOLLOWING MEDICATIONS NEED TO BE RECONCILED: Ambien Oral 10 mg, at bedtime Doxycycline Hyclate Oral Gabapentin Oral (600 mg), 3x a day Ibuprofen Oral 600 mg, 3x a day Imaprine 2 tabs, every PM LamoTRIgine Oral (50 mg) 2 tablets, daily Levothyroxine Sodium Oral 137mcg, daily Lexapro Oral 30 mg, daily Meloxicam Oral MetFORMIN HCl Oral 1000, 2x a day Omeprazole Oral 20 mg, 2x a day Prazosin HCl Oral unknown, at bedtime Robaxin Oral 750 mg, 3x a day TraZODone HCl Oral unknown, at bedtime The source(s) of the original Home Medication information: other The following Medications were given to the patient in the Emergency Department: Toradol [IM] IM 60 mg, administered: 07/24/2016 9:55:00 PM The following Medications were prescribed to the patient: None.
--- NOTE | 2016-07-24 22:08 | ED MAR SUMMARY ---
..... Medication Administration Record [facility] [address] [place] [address] Patient: ELIDIA SAXENA Visit ID: [id number] 46y, F Weight: 128.8 kg Height/Length: 68 in BMI: 43.2 ALLERGIES: Ampicillin, Latex, Morphine and Related, Penicillins, Zithromax Given 21:55 07/24/2016 Bety Rivera R.N. Medication Administered: TORADOL [IM] (KETOROLAC TROMETHAMINE), Dose: 60 mg IM. Medication Ordered: Toradol IM 60 mg (NOW).
--- NOTE | 2016-07-24 22:08 | ED MAR SUMMARY ---
..... Medication Administration Record [facility] [address] [place] [address] Patient: ELIDIA SAXENA Visit ID: [id number] 46y, F Weight: 128.8 kg Height/Length: 68 in BMI: 43.2 ALLERGIES: Ampicillin, Latex, Morphine and Related, Penicillins, Zithromax Given 21:55 07/24/2016 Bety Rivera R.N. Medication Administered: TORADOL [IM] (KETOROLAC TROMETHAMINE), Dose: 60 mg IM. Medication Ordered: Toradol IM 60 mg (NOW).
--- NOTE | 2016-07-24 22:08 | ED DISCHARGE INSTRUCTIONS ---
Patient: ELIDIA SAXENA General Instructions [facility] VisitID: [id number] [address] [place] [address] 46y, F Registration Date/Time: 07/24/2016 Sprain of the left rotator cuff. Well controlled type 2 diabetes. INSTRUCTIONS Apply ice. Understanding of the discharge instructions verbalized. Follow-up with: [facility], , [address], , [place], [id number] Follow up. Call for the next available appointment. ADDITIONAL INFORMATION Shoulder Sprain A sprain is a stretching or tearing of the ligaments that hold a joint together. A sprain may take up to six weeks to fully heal, depending on how severe it is. Moderate to severe shoulder sprains are treated with a sling or shoulder immobilizer. Minor sprains can be treated without any special support. Home care The following guidelines will help you care for your injury at home: If a sling was provided, leave it in place for the time advised by your doctor. If you are unsure how long to wear it, ask for advice. If the sling becomes loose, adjust it so that your forearm is level with the ground and the shoulder feels well supported. Apply an ice pack (ice cubes in a plastic bag, wrapped in a thin towel) over the injured area for 20 minutes every 12 hours the first day. Continue with ice packs 34 times a day for the next two days, then as needed for the relief of pain and swelling. You may use acetaminophen or ibuprofen to control pain, unless another pain medicine was prescribed.If you have chronic liver or kidney disease or ever had a stomach ulcer or GI bleeding, talk with your doctor before using these medicines. Shoulder joints become stiff if left in a sling for too long. Range of motion exercises should usually be started within the first ten days after injury. Consult your doctor on what type of exercises to do and how soon to start. Follow-up care Follow up with your doctor as directed. Any X-rays you had today dont show any broken bones, breaks, or fractures. Sometimes fractures dont show up on the first X-ray. Bruises and sprains can sometimes hurt as much as a fracture. These injuries can take time to heal completely. If your symptoms dont improve or they get worse, talk with your doctor. You may need a repeat X-ray. When to seek medical care Get prompt medical attention if any of the following occur: Increasing shoulder pain or arm swelling Fingers become cold, blue, numb, or tingly Large amount of bruising of the shoulder or upper arm You have been given the following additional information: Shoulder Sprain (Electronically signed by Sherron Watson P.A.-C 07/24/2016 22:07)
--- NOTE | 2016-07-24 22:08 | ED MED RECONCILIATION SUMMARY ---
Patient: ELIDIA SAXENA Medication Reconciliation Report [facility] VisitID: [id number] [address] [place] [address] 46y, F Registration Date/Time: 07/24/2016 Weight: 128.8 kg Height/Length: 68 in. BMI: 43.2 ALLERGIES: Ampicillin, Latex, Morphine and Related, Penicillins, Zithromax The patient's Home Medications are listed below: THE FOLLOWING MEDICATIONS NEED TO BE RECONCILED: Ambien Oral 10 mg, at bedtime Doxycycline Hyclate Oral Gabapentin Oral (600 mg), 3x a day Ibuprofen Oral 600 mg, 3x a day Imaprine 2 tabs, every PM LamoTRIgine Oral (50 mg) 2 tablets, daily Levothyroxine Sodium Oral 137mcg, daily Lexapro Oral 30 mg, daily Meloxicam Oral MetFORMIN HCl Oral 1000, 2x a day Omeprazole Oral 20 mg, 2x a day Prazosin HCl Oral unknown, at bedtime Robaxin Oral 750 mg, 3x a day TraZODone HCl Oral unknown, at bedtime The source(s) of the original Home Medication information: other The following Medications were given to the patient in the Emergency Department: Toradol [IM] IM 60 mg, administered: 07/24/2016 9:55:00 PM The following Medications were prescribed to the patient: None.
--- NOTE | 2016-07-24 22:08 | ED DISCHARGE INSTRUCTIONS ---
Patient: ELIDIA SAXENA General Instructions [facility] VisitID: [id number] [address] [place] [address] 46y, F Registration Date/Time: 07/24/2016 Sprain of the left rotator cuff. Well controlled type 2 diabetes. INSTRUCTIONS Apply ice. Understanding of the discharge instructions verbalized. Follow-up with: [facility], , [address], , [place], [id number] Follow up. Call for the next available appointment. ADDITIONAL INFORMATION Shoulder Sprain A sprain is a stretching or tearing of the ligaments that hold a joint together. A sprain may take up to six weeks to fully heal, depending on how severe it is. Moderate to severe shoulder sprains are treated with a sling or shoulder immobilizer. Minor sprains can be treated without any special support. Home care The following guidelines will help you care for your injury at home: If a sling was provided, leave it in place for the time advised by your doctor. If you are unsure how long to wear it, ask for advice. If the sling becomes loose, adjust it so that your forearm is level with the ground and the shoulder feels well supported. Apply an ice pack (ice cubes in a plastic bag, wrapped in a thin towel) over the injured area for 20 minutes every 12 hours the first day. Continue with ice packs 34 times a day for the next two days, then as needed for the relief of pain and swelling. You may use acetaminophen or ibuprofen to control pain, unless another pain medicine was prescribed.If you have chronic liver or kidney disease or ever had a stomach ulcer or GI bleeding, talk with your doctor before using these medicines. Shoulder joints become stiff if left in a sling for too long. Range of motion exercises should usually be started within the first ten days after injury. Consult your doctor on what type of exercises to do and how soon to start. Follow-up care Follow up with your doctor as directed. Any X-rays you had today dont show any broken bones, breaks, or fractures. Sometimes fractures dont show up on the first X-ray. Bruises and sprains can sometimes hurt as much as a fracture. These injuries can take time to heal completely. If your symptoms dont improve or they get worse, talk with your doctor. You may need a repeat X-ray. When to seek medical care Get prompt medical attention if any of the following occur: Increasing shoulder pain or arm swelling Fingers become cold, blue, numb, or tingly Large amount of bruising of the shoulder or upper arm You have been given the following additional information: Shoulder Sprain (Electronically signed by Sherron Watson P.A.-C 07/24/2016 22:07)
== END 2016-07-24 22:00 | disposition home or self-care (01) ==
LOC: ED SRH 21:15
DX: S43.421D Sprain of right rotator cuff capsule, subsequent encounter (principal); E11.9 Type 2 diabetes mellitus without complications; W20.8XXD Other cause of strike by thrown, projected or falling object, subsequent encounter; E07.9 Disorder of thyroid, unspecified; Z79.899 Other long term (current) drug therapy; Z79.84 Long term (current) use of oral hypoglycemic drugs; Z88.5 Allergy status to narcotic agent; Z88.0 Allergy status to penicillin; Z88.1 Allergy status to other antibiotic agents
CPT/HCPCS: 90098

== ENCOUNTER 2016-07-31 19:57 | Emergency (ER) | payer MEDICARE, OTHER ==
--- NOTE | 2016-07-31 20:34 | ED NURSING NOTES ---
Clinical Report - Nurses [facility] [address] [place] [address] 07/31/2016 19:57 Patient: ELIDIA SAXENA TRIAGE Triage time 2014. Acuity: LEVEL 4. Chief Complaint: COUGH and (hemoptysis). Alert. No acute distress. --20:22 Radha Figueroa 20:18 07/31/16. BP: 152/79. HR: 83. RR: 18. O2 saturation: 99%. Temp: 98.4 F. Pain level now 10/11. --20:22 Radha Figueroa. Weight: 128.3 kg. Height/Length: 64 inches. BMI: 48.6. --20:17 Radha Figueroa. Medications Ambien Oral 10 mg, at bedtime. Doxycycline Hyclate Oral. Gabapentin Oral (Tablet 600 mg), 3x a day. Ibuprofen Oral 600 mg, 3x a day. Imaprine 2 tabs, every PM. LamoTRIgine Oral (Tablet Dispersible 50 mg) 2 tablets, daily. Levothyroxine Sodium Oral 137mcg, daily. Lexapro Oral 30 mg, daily. Meloxicam Oral. MetFORMIN HCl Oral 1000, 2x a day. Omeprazole Oral 20 mg, 2x a day. Prazosin HCl Oral unknown, at bedtime. Robaxin Oral 750 mg, 3x a day as needed. TraZODone HCl Oral unknown, at bedtime. --20:20 Radha Figueroa. Allergies Ampicillin. Latex. Morphine and Related. Penicillins. Zithromax. --20:20 Radha Figueroa. History Arrived by private vehicle. Historian: patient. Unaccompanied. Onset. (3 days ago). ( Pt sts the neighbors smoke in their apartment and they are not supposed to, She sts the management won't do anything about it and say they can't prove it. Pt is upset and sts she is allergic to the smoke, pt sts she is coughing all the time and has blood on her kleenex, pt with dry exagerrated cough during triage, mask is on). 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 SOCIAL HX: Never smoker. History of drug use: marijuana. No alcohol use. --20:22 Radha Figueroa. PROBLEMS: Sprain. Bronchitis and Sinusitis. Chest Wall Pain. Upper Extremity Pain. Dizziness. Myofascial Strain. PTSD. Night Terrors. Gastroesophageal Reflux Disease. Bipolar Disorder. Depression. Neuropathy. Anxiety Reaction. Back Pain. Thyroid Disease. Head Injury. Contusion. Asthma. Diabetes Mellitus. --20:21 Radha Figueroa. ADDITIONAL SURGERIES: Back Surgery. Cholecystectomy. . Discectomy for intervertebral herniated disc, nucleus pulposus. Tonsillectomy. Wrist surgery. --20:21 Radha Figueroa. Interventions ID band on patient. To treatment room. --20:22 Radha Figueroa. PHYSICAL ASSESSMENT To room via wheelchair. GENERAL / NEURO / PSYCH: Alert. Oriented X 4. Appears in no acute distress. HEENT: Pupils equal, round and reactive to light. Pharynx within normal limits. Voice within normal limits. Mucous membranes are pink. RESPIRATORY: Respirations not labored. Breath sounds within normal limits. ( speaking full sentences easily). CVS: Normal sinus rhythm noted. Capillary refill less than 2 seconds. SKIN: Skin is warm and dry. Normal skin turgor. --20:22 Radha Figueroa. NURSING PROGRESS NOTES Reassurance given. Call light placed in reach. Bed placed in lowest position. Brakes of bed on. Patient ready for evaluation- chart flagged. --20:23 Radha Figueroa. DISPOSITION / DISCHARGE Departure time: 2044. Condition at departure: unchanged and stable. Discharge instructions provided and reviewed with the patient. Reviewed medication(s). Patient verbalized understanding. Written instructions provided in Libyan. The patient was discharged by the physician. She was discharged home and unaccompanied at time of discharge. She left the Emergency Department ambulatory and via private vehicle. Patient driving. --20:46 Radha Figueroa. Locked/Released at 07/31/2016 20:46 by Radha Figueroa,
--- NOTE | 2016-07-31 20:34 | ED NURSING NOTES ---
Clinical Report - Nurses [facility] [address] [place] [address] 07/31/2016 19:57 Patient: ELIDIA SAXENA TRIAGE Triage time 2014. Acuity: LEVEL 4. Chief Complaint: COUGH and (hemoptysis). Alert. No acute distress. --20:22 Radha Figueroa 20:18 07/31/16. BP: 152/79. HR: 83. RR: 18. O2 saturation: 99%. Temp: 98.4 F. Pain level now 10/11. --20:22 Radha Figueroa. Weight: 128.3 kg. Height/Length: 64 inches. BMI: 48.6. --20:17 Radha Figueroa. Medications Ambien Oral 10 mg, at bedtime. Doxycycline Hyclate Oral. Gabapentin Oral (Tablet 600 mg), 3x a day. Ibuprofen Oral 600 mg, 3x a day. Imaprine 2 tabs, every PM. LamoTRIgine Oral (Tablet Dispersible 50 mg) 2 tablets, daily. Levothyroxine Sodium Oral 137mcg, daily. Lexapro Oral 30 mg, daily. Meloxicam Oral. MetFORMIN HCl Oral 1000, 2x a day. Omeprazole Oral 20 mg, 2x a day. Prazosin HCl Oral unknown, at bedtime. Robaxin Oral 750 mg, 3x a day as needed. TraZODone HCl Oral unknown, at bedtime. --20:20 Radha Figueroa. Allergies Ampicillin. Latex. Morphine and Related. Penicillins. Zithromax. --20:20 Radha Figueroa. History Arrived by private vehicle. Historian: patient. Unaccompanied. Onset. (3 days ago). ( Pt sts the neighbors smoke in their apartment and they are not supposed to, She sts the management won't do anything about it and say they can't prove it. Pt is upset and sts she is allergic to the smoke, pt sts she is coughing all the time and has blood on her kleenex, pt with dry exagerrated cough during triage, mask is on). 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 SOCIAL HX: Never smoker. History of drug use: marijuana. No alcohol use. --20:22 Radha Figueroa. PROBLEMS: Sprain. Bronchitis and Sinusitis. Chest Wall Pain. Upper Extremity Pain. Dizziness. Myofascial Strain. PTSD. Night Terrors. Gastroesophageal Reflux Disease. Bipolar Disorder. Depression. Neuropathy. Anxiety Reaction. Back Pain. Thyroid Disease. Head Injury. Contusion. Asthma. Diabetes Mellitus. --20:21 Radha Figueroa. ADDITIONAL SURGERIES: Back Surgery. Cholecystectomy. . Discectomy for intervertebral herniated disc, nucleus pulposus. Tonsillectomy. Wrist surgery. --20:21 Radha Figueroa. Interventions ID band on patient. To treatment room. --20:22 Radha Figueroa. PHYSICAL ASSESSMENT To room via wheelchair. GENERAL / NEURO / PSYCH: Alert. Oriented X 4. Appears in no acute distress. HEENT: Pupils equal, round and reactive to light. Pharynx within normal limits. Voice within normal limits. Mucous membranes are pink. RESPIRATORY: Respirations not labored. Breath sounds within normal limits. ( speaking full sentences easily). CVS: Normal sinus rhythm noted. Capillary refill less than 2 seconds. SKIN: Skin is warm and dry. Normal skin turgor. --20:22 Radha Figueroa. NURSING PROGRESS NOTES Reassurance given. Call light placed in reach. Bed placed in lowest position. Brakes of bed on. Patient ready for evaluation- chart flagged. --20:23 Radha Figueroa. DISPOSITION / DISCHARGE Departure time: 2044. Condition at departure: unchanged and stable. Discharge instructions provided and reviewed with the patient. Reviewed medication(s). Patient verbalized understanding. Written instructions provided in Latvian. The patient was discharged by the physician. She was discharged home and unaccompanied at time of discharge. She left the Emergency Department ambulatory and via private vehicle. Patient driving. --20:46 Radha Figueroa. Locked/Released at 07/31/2016 20:46 by Radha Figueroa,
--- NOTE | 2016-07-31 20:34 | ED CLINICAL REPORT ---
Clinical Report - Physicians/Mid Levels [facility] [address] [place] [address] 07/31/2016 19:57 Patient: ELIDIA SAXENA Time Seen: 20:20; initial patient contact. Arrived- By private vehicle. Historian- patient. HISTORY OF PRESENT ILLNESS Chief Complaint: DYSPNEA and HISTORY OF ASTHMA. This started today and is still present. It was gradual in onset and has been intermittent. The dyspnea is described as mild. (Improved w/ Albuterol MDI). She has not had worsening of dyspnea with walking, exertion, supine position or coughing. The patient has had a cough and wheezing. She has had scant amounts of blood tinged sputum. No fever, sweating episodes, chills or dyspnea on exertion. No chest pain or discomfort, calf pain, foot swelling or palpitations. Similar symptoms previously: None. Recent medical care: Not recently seen/assessed. REVIEW OF SYSTEMS The patient has had a nasal discharge, sinus drainage and a sore throat. No nausea, vomiting or abdominal pain. All systems otherwise negative, except as recorded above. PAST HISTORY Sprain. Bronchitis and Sinusitis. Chest Wall Pain. Upper Extremity Pain. Dizziness. Myofascial Strain. PTSD. Night Terrors. Gastroesophageal Reflux Disease. Bipolar Disorder. Depression. Neuropathy. Anxiety Reaction. Back Pain. Thyroid Disease. Head Injury. Contusion. Asthma. Diabetes Mellitus. SURGERIES: Back Surgery. Cholecystectomy. . Discectomy for intervertebral herniated disc, nucleus pulposus. Tonsillectomy. Wrist surgery. SOCIAL HISTORY Never smoker. History of drug use: marijuana. ADDITIONAL NOTES The nursing notes have been reviewed. PHYSICAL EXAM Vital Signs: 07/31/2016 20:18 BP: 152/79. HR: 83. RR: 18. O2 saturation: 99%. Temp: 98.4 F. Have been reviewed. Hypertensive. Heart rate normal. Respiratory rate normal. Temperature normal. Oxygen saturation normal. Appearance: Alert. No acute distress. Eyes: Eyes normal inspection. ENT: Tenderness present to percussion/palpation of the sinuses: moderate right and left maxillary tenderness. Minimal, thick, yellow nasal discharge present (blood tinged PND). Mild pharyngeal erythema. The mucous membranes are not dry. Neck: Normal inspection. No lymphadenopathy. CVS: Normal heart rate and rhythm. Heart sounds normal. Respiratory: No respiratory distress. Breath sounds normal. Skin: Skin warm and dry. Normal skin color. No rash. Neuro: Oriented X 3. PROGRESS AND PROCEDURES Disposition: Discharged home in good and improved condition. Condition: good. CLINICAL IMPRESSION Acute maxillary sinusitis INSTRUCTIONS Your Current Medications: CONTINUE TAKING THE FOLLOWING MEDICATIONS: Ambien Oral : 10 mg at bedtime. Doxycycline Hyclate Oral. Gabapentin Oral : Tablet 600 mg, 3x a day. Ibuprofen Oral : 600 mg 3x a day. Imaprine* : 2 tabs every PM. LamoTRIgine Oral : Tablet Dispersible 50 mg, 2 tablets daily. Levothyroxine Sodium Oral : 137mcg daily. Lexapro Oral : 30 mg daily. Meloxicam Oral. MetFORMIN HCl Oral : 1000 2x a day. Omeprazole Oral : 20 mg 2x a day. Prazosin HCl Oral : unknown at bedtime. Robaxin Oral : 750 mg 3x a day, prn. TraZODone HCl Oral : unknown at bedtime. Prescription Medications: Levaquin 500 mg: take 1 tab orally every day for 7 days. No refills. Substitution is permissible. Follow-up: Screening today revealed the patient's blood pressure to be in the hypertensive range. The patient should follow up with a primary care provider for blood pressure management. Follow-up with: Tony Robb MD, ENT, , [address], , [place], [id number] Follow up in about two days. Call for an appointment. (Electronically signed by Devan Saxena Dr. 07/31/2016 20:37)
--- NOTE | 2016-07-31 20:34 | ED CLINICAL REPORT ---
Clinical Report - Physicians/Mid Levels [facility] [address] [place] [address] 07/31/2016 19:57 Patient: ELIDIA SAXENA Time Seen: 20:20; initial patient contact. Arrived- By private vehicle. Historian- patient. HISTORY OF PRESENT ILLNESS Chief Complaint: DYSPNEA and HISTORY OF ASTHMA. This started today and is still present. It was gradual in onset and has been intermittent. The dyspnea is described as mild. (Improved w/ Albuterol MDI). She has not had worsening of dyspnea with walking, exertion, supine position or coughing. The patient has had a cough and wheezing. She has had scant amounts of blood tinged sputum. No fever, sweating episodes, chills or dyspnea on exertion. No chest pain or discomfort, calf pain, foot swelling or palpitations. Similar symptoms previously: None. Recent medical care: Not recently seen/assessed. REVIEW OF SYSTEMS The patient has had a nasal discharge, sinus drainage and a sore throat. No nausea, vomiting or abdominal pain. All systems otherwise negative, except as recorded above. PAST HISTORY Sprain. Bronchitis and Sinusitis. Chest Wall Pain. Upper Extremity Pain. Dizziness. Myofascial Strain. PTSD. Night Terrors. Gastroesophageal Reflux Disease. Bipolar Disorder. Depression. Neuropathy. Anxiety Reaction. Back Pain. Thyroid Disease. Head Injury. Contusion. Asthma. Diabetes Mellitus. SURGERIES: Back Surgery. Cholecystectomy. . Discectomy for intervertebral herniated disc, nucleus pulposus. Tonsillectomy. Wrist surgery. SOCIAL HISTORY Never smoker. History of drug use: marijuana. ADDITIONAL NOTES The nursing notes have been reviewed. PHYSICAL EXAM Vital Signs: 07/31/2016 20:18 BP: 152/79. HR: 83. RR: 18. O2 saturation: 99%. Temp: 98.4 F. Have been reviewed. Hypertensive. Heart rate normal. Respiratory rate normal. Temperature normal. Oxygen saturation normal. Appearance: Alert. No acute distress. Eyes: Eyes normal inspection. ENT: Tenderness present to percussion/palpation of the sinuses: moderate right and left maxillary tenderness. Minimal, thick, yellow nasal discharge present (blood tinged PND). Mild pharyngeal erythema. The mucous membranes are not dry. Neck: Normal inspection. No lymphadenopathy. CVS: Normal heart rate and rhythm. Heart sounds normal. Respiratory: No respiratory distress. Breath sounds normal. Skin: Skin warm and dry. Normal skin color. No rash. Neuro: Oriented X 3. PROGRESS AND PROCEDURES Disposition: Discharged home in good and improved condition. Condition: good. CLINICAL IMPRESSION Acute maxillary sinusitis INSTRUCTIONS Your Current Medications: CONTINUE TAKING THE FOLLOWING MEDICATIONS: Ambien Oral : 10 mg at bedtime. Doxycycline Hyclate Oral. Gabapentin Oral : Tablet 600 mg, 3x a day. Ibuprofen Oral : 600 mg 3x a day. Imaprine* : 2 tabs every PM. LamoTRIgine Oral : Tablet Dispersible 50 mg, 2 tablets daily. Levothyroxine Sodium Oral : 137mcg daily. Lexapro Oral : 30 mg daily. Meloxicam Oral. MetFORMIN HCl Oral : 1000 2x a day. Omeprazole Oral : 20 mg 2x a day. Prazosin HCl Oral : unknown at bedtime. Robaxin Oral : 750 mg 3x a day, prn. TraZODone HCl Oral : unknown at bedtime. Prescription Medications: Levaquin 500 mg: take 1 tab orally every day for 7 days. No refills. Substitution is permissible. Follow-up: Screening today revealed the patient's blood pressure to be in the hypertensive range. The patient should follow up with a primary care provider for blood pressure management. Follow-up with: Tony Robb MD, ENT, , [address], , [place], [id number] Follow up in about two days. Call for an appointment. (Electronically signed by Devan Saxena Dr. 07/31/2016 20:37)
--- NOTE | 2016-07-31 20:47 | ED DISCHARGE INSTRUCTIONS ---
Patient: ELIDIA SAXENA General Instructions [facility] VisitID: [id number] [address] [place] [address] 46y, F Registration Date/Time: 07/31/2016 Acute maxillary sinusitis INSTRUCTIONS Your Current Medications: CONTINUE TAKING THE FOLLOWING MEDICATIONS: Ambien Oral : 10 mg at bedtime. Doxycycline Hyclate Oral. Gabapentin Oral : Tablet 600 mg, 3x a day. Ibuprofen Oral : 600 mg 3x a day. Imaprine* : 2 tabs every PM. LamoTRIgine Oral : Tablet Dispersible 50 mg, 2 tablets daily. Levothyroxine Sodium Oral : 137mcg daily. Lexapro Oral : 30 mg daily. Meloxicam Oral. MetFORMIN HCl Oral : 1000 2x a day. Omeprazole Oral : 20 mg 2x a day. Prazosin HCl Oral : unknown at bedtime. Robaxin Oral : 750 mg 3x a day, prn. TraZODone HCl Oral : unknown at bedtime. Prescription Medications: Levaquin 500 mg: take 1 tab orally every day for 7 days. No refills. Substitution is permissible. Follow-up: Screening today revealed the patient's blood pressure to be in the hypertensive range. The patient should follow up with a primary care provider for blood pressure management. Follow-up with: Tony Robb MD, ENT, , [address], , [place], [id number] Follow up in about two days. Call for an appointment. ADDITIONAL INFORMATION Sinusitis [Abx Tx] The sinuses are air-filled spaces within the bones of the face. They connect to the inside of the nose. Sinusitis is an inflammation of the tissue lining the sinus cavity. Sinus inflammation can occur during a cold or hay-fever (allergies to pollens and other particles in the air) and cause symptoms of sinus congestion and fullness. A sinus infection causes fever, headache and facial pain. There is usually green or yellow drainage from the nose or into the back of the throat (post-nasal drip). Antibiotics are prescribed to treat this condition. Home Care: Drink plenty of water, hot tea, and other liquids to stay well hydrated. This thins the mucus and promotes sinus drainage. Apply heat to the painful areas of the face. Use a towel soaked in hot water. Or, farm machinery set up mechanic the shower and direct the hot spray onto your face. This is a good way to inhale warm water vapor and get heat on your face at the same time. (Cover your mouth and nose with your hands so you can still breathe as you do this.) Use a vaporizer with products such as Vicks VapoRub (contains menthol) at night. Suck on peppermint, menthol or eucalyptus hard candies during the day. An expectorant containing guaifenesin (such as Robitussin), helps to thin the mucus and promote drainage from the sinuses. Vneq-gaj-chkqnkl decongestants may be used unless a similar medicine was prescribed. Nasal sprays work the fastest. Use one that contains phenylephrine (Darrell-synephrine, Sinex and others) or oxymetazoline (Afrin). First blow the nose gently to remove mucus, then apply the drops. Do not use these medicines more often than directed on the label or for more than three days or symptoms may worsen. You may also use tablets containing pseudoephedrine (Sudafed). Many sinus remedies combine ingredients, which may increase side effects. Read the labels or ask the pharmacist for help. NOTE: Persons with high blood pressure should not use decongestants. They can raise blood pressure. Antihistamines are useful if allergies are a cause of your sinusitis. The mildest one is chlorpheniramine (available without a prescription). The dose for adults is 8-12mg three times a day. [NOTE: Do not use chlorpheniramine if you have glaucoma or if you are a man with trouble urinating due to an enlarged prostate.] Claritin (loratidine) is an antihistamine that causes less drowsiness and is a good alternative for daytime use. Do not use nasal rinses or irrigation during an acute sinus infection, unless advised by your doctor. Rinsing may spread the infection to other sinuses. You may use acetaminophen (Tylenol) or ibuprofen (Motrin, Advil) to control pain, unless another pain medicine was prescribed. [ NOTE: If you have chronic liver or kidney disease or ever had a stomach ulcer, talk with your doctor before using these medicines.] (Aspirin should never be used in anyone under 18 years of age who is ill with a fever. It may cause severe liver damage.) Finish the full course, even if you are feeling better after a few days. Follow Up with your doctor or this facility in one week or as instructed by our staff if not improving. Get Prompt Medical Attention if any of the following occur: Facial pain or headache becomes more severe Stiff neck Unusual drowsiness or confusion, or not acting like your normal self Swelling of the forehead or eyelids Vision problems including blurred or double vision Fever of 100.4F (38C) or higher, or as directed by your healthcare provider Seizure Levofloxacin Oral tablet What is this medicine? LEVOFLOXACIN (yong edwards) is a quinolone antibiotic. It is used to treat certain kinds of bacterial infections. It will not work for colds, flu, or other viral infections. How should I use this medicine? Take this medicine by mouth with a full glass of water. Follow the directions on the prescription label. This medicine can be taken with or without food. Take your medicine at regular intervals. Do not take your medicine more often than directed. Do not skip doses or stop your medicine early even if you feel better. Do not stop taking except on your doctor's advice. A special MedGuide will be given to you by the pharmacist with each prescription and refill. Be sure to read this information carefully each time. Talk to your website admin regarding the use of this medicine in children. While this drug may be prescribed for children as young as 6 months for selected conditions, precautions do apply. What side effects may I notice from receiving this medicine? Side effects that you should report to your doctor or health home care and home health aides teacher as soon as possible: -allergic reactions like skin rash or hives, swelling of the face, lips, or tongue -changes in vision -confusion, nightmares or hallucinations -difficulty breathing -irregular heartbeat, chest pain -joint, muscle or tendon pain -pain or difficulty passing urine -persistent headache with or without blurred vision -redness, blistering, peeling or loosening of the skin, including inside the mouth -seizures -unusual pain, numbness, tingling, or weakness -vaginal irritation, discharge Side effects that usually do not require medical attention (report to your doctor or health home care and home health aides teacher if they continue or are bothersome): -diarrhea -dry mouth -headache -stomach upset, nausea -trouble sleeping What may interact with this medicine? Do not take this medicine with any of the following medications: - arsenic trioxide - chloroquine - droperidol - medicines for irregular heart rhythm like amiodarone, disopyramide, dofetilide, flecainide, quinidine, procainamide, sotalol - some medicines for depression or mental problems like phenothiazines, pimozide, and ziprasidone This medicine may also interact with the following medications: - amoxapine -antacids - cisapride - dairy products - didanosine (ddI) buffered tablets or powder - haloperidol - multivitamins -NSAIDS, medicines for pain and inflammation, like ibuprofen or naproxen - retinoid products like tretinoin or isotretinoin - risperidone - some other antibiotics like clarithromycin or erythromycin - sucralfate - theophylline - warfarin What if I miss a dose? If you miss a dose, take it as soon as you remember. If it is almost time for your next dose, take only that dose. Do not take double or extra doses. Where should I keep my medicine? Keep out of the reach of children. Store at room temperature between 15 and 30 degrees C (59 and 86 degrees F). Keep in a tightly closed container. Throw away any unused medicine after the expiration date. What should I tell my health care provider before I take this medicine? They need to know if you have any of these conditions: cerebral disease irregular heartbeat kidney disease seizure disorder an unusual or allergic reaction to levofloxacin, other antibiotics or medicines, foods, dyes, or preservatives or trying to get breast-feeding What should I watch for while using this medicine? Tell your doctor or health home care and home health aides teacher if your symptoms do not improve or if they get worse. Drink several glasses of water a day and cut down on drinks that contain caffeine. You must not get dehydrated while taking this medicine. You may get drowsy or dizzy. Do not drive, use machinery, or do anything that needs mental alertness until you know how this medicine affects you. Do not sit or stand up quickly, especially if you are an older patient. This reduces the risk of dizzy or fainting spells. This medicine can make you more sensitive to the sun. Keep out of the sun. If you cannot avoid being in the sun, wear protective clothing and use a sunscreen. Do not use sun lamps or tanning beds/booths. Contact your doctor if you get a sunburn. If you are a diabetic monitor your blood glucose carefully. If you get an unusual reading stop taking this medicine and call your doctor right away. Do not treat diarrhea with iysj-axm-vpwndwm products. Contact your doctor if you have diarrhea that lasts more than 2 days or if the diarrhea is severe and watery. Avoid antacids, calcium, iron, and zinc products for 2 hours before and 2 hours after taking a dose of this medicine. You have been given the following additional information: Sinusitis, Abx Tx Levofloxacin Oral tablet (Electronically signed by Devan Saxena Dr. 07/31/2016 20:37)
--- NOTE | 2016-07-31 20:47 | ED MAR SUMMARY ---
..... Medication Administration Record [facility] [address] [place], [place] [id number] Patient: ELIDIA SAXENA Visit ID: [id number] 46y, F Weight: 128.3 kg Height/Length: 64 in BMI: 48.6 ALLERGIES: Ampicillin, Latex, Morphine and Related, Penicillins, Zithromax
--- NOTE | 2016-07-31 20:47 | ED MED RECONCILIATION SUMMARY ---
Patient: ELIDIA MACIAS Medication Reconciliation Report [facility] VisitID: [id number] [address] [place] [address] 46y, F Registration Date/Time: 07/31/2016 Weight: 128.3 kg Height/Length: 64 in. BMI: 48.6 ALLERGIES: Ampicillin, Latex, Morphine and Related, Penicillins, Zithromax The patient's Home Medications are listed below: CONTINUE TAKING THE FOLLOWING MEDICATIONS: Ambien Oral 10 mg, at bedtime Doxycycline Hyclate Oral Gabapentin Oral (600 mg), 3x a day Ibuprofen Oral 600 mg, 3x a day Imaprine 2 tabs, every PM LamoTRIgine Oral (50 mg) 2 tablets, daily Levothyroxine Sodium Oral 137mcg, daily Lexapro Oral 30 mg, daily Meloxicam Oral MetFORMIN HCl Oral 1000, 2x a day Omeprazole Oral 20 mg, 2x a day Prazosin HCl Oral unknown, at bedtime Robaxin Oral 750 mg, 3x a day TraZODone HCl Oral unknown, at bedtime The source(s) of the original Home Medication information: Not obtained. The following Medications were given to the patient in the Emergency Department: None. The following Medications were prescribed to the patient: Levaquin 500 mg: take 1 tab orally every day for 7 days. No refills. Substitution is permissible. -- Devan Macias Dr.
--- NOTE | 2016-07-31 20:47 | ED DISCHARGE INSTRUCTIONS ---
Patient: ELIDIA SAXENA General Instructions [facility] VisitID: [id number] [address] [place] [address] 46y, F Registration Date/Time: 07/31/2016 Acute maxillary sinusitis INSTRUCTIONS Your Current Medications: CONTINUE TAKING THE FOLLOWING MEDICATIONS: Ambien Oral : 10 mg at bedtime. Doxycycline Hyclate Oral. Gabapentin Oral : Tablet 600 mg, 3x a day. Ibuprofen Oral : 600 mg 3x a day. Imaprine* : 2 tabs every PM. LamoTRIgine Oral : Tablet Dispersible 50 mg, 2 tablets daily. Levothyroxine Sodium Oral : 137mcg daily. Lexapro Oral : 30 mg daily. Meloxicam Oral. MetFORMIN HCl Oral : 1000 2x a day. Omeprazole Oral : 20 mg 2x a day. Prazosin HCl Oral : unknown at bedtime. Robaxin Oral : 750 mg 3x a day, prn. TraZODone HCl Oral : unknown at bedtime. Prescription Medications: Levaquin 500 mg: take 1 tab orally every day for 7 days. No refills. Substitution is permissible. Follow-up: Screening today revealed the patient's blood pressure to be in the hypertensive range. The patient should follow up with a primary care provider for blood pressure management. Follow-up with: Tony Robb MD, ENT, , [address], , [place], [id number] Follow up in about two days. Call for an appointment. ADDITIONAL INFORMATION Sinusitis [Abx Tx] The sinuses are air-filled spaces within the bones of the face. They connect to the inside of the nose. Sinusitis is an inflammation of the tissue lining the sinus cavity. Sinus inflammation can occur during a cold or hay-fever (allergies to pollens and other particles in the air) and cause symptoms of sinus congestion and fullness. A sinus infection causes fever, headache and facial pain. There is usually green or yellow drainage from the nose or into the back of the throat (post-nasal drip). Antibiotics are prescribed to treat this condition. Home Care: Drink plenty of water, hot tea, and other liquids to stay well hydrated. This thins the mucus and promotes sinus drainage. Apply heat to the painful areas of the face. Use a towel soaked in hot water. Or, farm machinery erector the shower and direct the hot spray onto your face. This is a good way to inhale warm water vapor and get heat on your face at the same time. (Cover your mouth and nose with your hands so you can still breathe as you do this.) Use a vaporizer with products such as Vicks VapoRub (contains menthol) at night. Suck on peppermint, menthol or eucalyptus hard candies during the day. An expectorant containing guaifenesin (such as Robitussin), helps to thin the mucus and promote drainage from the sinuses. Strc-hde-ridozfj decongestants may be used unless a similar medicine was prescribed. Nasal sprays work the fastest. Use one that contains phenylephrine (Darrell-synephrine, Sinex and others) or oxymetazoline (Afrin). First blow the nose gently to remove mucus, then apply the drops. Do not use these medicines more often than directed on the label or for more than three days or symptoms may worsen. You may also use tablets containing pseudoephedrine (Sudafed). Many sinus remedies combine ingredients, which may increase side effects. Read the labels or ask the pharmacist for help. NOTE: Persons with high blood pressure should not use decongestants. They can raise blood pressure. Antihistamines are useful if allergies are a cause of your sinusitis. The mildest one is chlorpheniramine (available without a prescription). The dose for adults is 8-12mg three times a day. [NOTE: Do not use chlorpheniramine if you have glaucoma or if you are a man with trouble urinating due to an enlarged prostate.] Claritin (loratidine) is an antihistamine that causes less drowsiness and is a good alternative for daytime use. Do not use nasal rinses or irrigation during an acute sinus infection, unless advised by your doctor. Rinsing may spread the infection to other sinuses. You may use acetaminophen (Tylenol) or ibuprofen (Motrin, Advil) to control pain, unless another pain medicine was prescribed. [ NOTE: If you have chronic liver or kidney disease or ever had a stomach ulcer, talk with your doctor before using these medicines.] (Aspirin should never be used in anyone under 18 years of age who is ill with a fever. It may cause severe liver damage.) Finish the full course, even if you are feeling better after a few days. Follow Up with your doctor or this facility in one week or as instructed by our staff if not improving. Get Prompt Medical Attention if any of the following occur: Facial pain or headache becomes more severe Stiff neck Unusual drowsiness or confusion, or not acting like your normal self Swelling of the forehead or eyelids Vision problems including blurred or double vision Fever of 100.4F (38C) or higher, or as directed by your healthcare provider Seizure Levofloxacin Oral tablet What is this medicine? LEVOFLOXACIN (yong edwards) is a quinolone antibiotic. It is used to treat certain kinds of bacterial infections. It will not work for colds, flu, or other viral infections. How should I use this medicine? Take this medicine by mouth with a full glass of water. Follow the directions on the prescription label. This medicine can be taken with or without food. Take your medicine at regular intervals. Do not take your medicine more often than directed. Do not skip doses or stop your medicine early even if you feel better. Do not stop taking except on your doctor's advice. A special MedGuide will be given to you by the pharmacist with each prescription and refill. Be sure to read this information carefully each time. Talk to your ski molder regarding the use of this medicine in children. While this drug may be prescribed for children as young as 6 months for selected conditions, precautions do apply. What side effects may I notice from receiving this medicine? Side effects that you should report to your doctor or health elderly caregiver as soon as possible: -allergic reactions like skin rash or hives, swelling of the face, lips, or tongue -changes in vision -confusion, nightmares or hallucinations -difficulty breathing -irregular heartbeat, chest pain -joint, muscle or tendon pain -pain or difficulty passing urine -persistent headache with or without blurred vision -redness, blistering, peeling or loosening of the skin, including inside the mouth -seizures -unusual pain, numbness, tingling, or weakness -vaginal irritation, discharge Side effects that usually do not require medical attention (report to your doctor or health elderly caregiver if they continue or are bothersome): -diarrhea -dry mouth -headache -stomach upset, nausea -trouble sleeping What may interact with this medicine? Do not take this medicine with any of the following medications: - arsenic trioxide - chloroquine - droperidol - medicines for irregular heart rhythm like amiodarone, disopyramide, dofetilide, flecainide, quinidine, procainamide, sotalol - some medicines for depression or mental problems like phenothiazines, pimozide, and ziprasidone This medicine may also interact with the following medications: - amoxapine -antacids - cisapride - dairy products - didanosine (ddI) buffered tablets or powder - haloperidol - multivitamins -NSAIDS, medicines for pain and inflammation, like ibuprofen or naproxen - retinoid products like tretinoin or isotretinoin - risperidone - some other antibiotics like clarithromycin or erythromycin - sucralfate - theophylline - warfarin What if I miss a dose? If you miss a dose, take it as soon as you remember. If it is almost time for your next dose, take only that dose. Do not take double or extra doses. Where should I keep my medicine? Keep out of the reach of children. Store at room temperature between 15 and 30 degrees C (59 and 86 degrees F). Keep in a tightly closed container. Throw away any unused medicine after the expiration date. What should I tell my health care provider before I take this medicine? They need to know if you have any of these conditions: cerebral disease irregular heartbeat kidney disease seizure disorder an unusual or allergic reaction to levofloxacin, other antibiotics or medicines, foods, dyes, or preservatives or trying to get breast-feeding What should I watch for while using this medicine? Tell your doctor or health elderly caregiver if your symptoms do not improve or if they get worse. Drink several glasses of water a day and cut down on drinks that contain caffeine. You must not get dehydrated while taking this medicine. You may get drowsy or dizzy. Do not drive, use machinery, or do anything that needs mental alertness until you know how this medicine affects you. Do not sit or stand up quickly, especially if you are an older patient. This reduces the risk of dizzy or fainting spells. This medicine can make you more sensitive to the sun. Keep out of the sun. If you cannot avoid being in the sun, wear protective clothing and use a sunscreen. Do not use sun lamps or tanning beds/booths. Contact your doctor if you get a sunburn. If you are a diabetic monitor your blood glucose carefully. If you get an unusual reading stop taking this medicine and call your doctor right away. Do not treat diarrhea with wtyo-hgq-fdybian products. Contact your doctor if you have diarrhea that lasts more than 2 days or if the diarrhea is severe and watery. Avoid antacids, calcium, iron, and zinc products for 2 hours before and 2 hours after taking a dose of this medicine. You have been given the following additional information: Sinusitis, Abx Tx Levofloxacin Oral tablet (Electronically signed by Devan Saxena Dr. 07/31/2016 20:37)
--- NOTE | 2016-07-31 20:47 | ED MED RECONCILIATION SUMMARY ---
Patient: ELIDIA MACIAS Medication Reconciliation Report [facility] VisitID: [id number] [address] [place] [address] 46y, F Registration Date/Time: 07/31/2016 Weight: 128.3 kg Height/Length: 64 in. BMI: 48.6 ALLERGIES: Ampicillin, Latex, Morphine and Related, Penicillins, Zithromax The patient's Home Medications are listed below: CONTINUE TAKING THE FOLLOWING MEDICATIONS: Ambien Oral 10 mg, at bedtime Doxycycline Hyclate Oral Gabapentin Oral (600 mg), 3x a day Ibuprofen Oral 600 mg, 3x a day Imaprine 2 tabs, every PM LamoTRIgine Oral (50 mg) 2 tablets, daily Levothyroxine Sodium Oral 137mcg, daily Lexapro Oral 30 mg, daily Meloxicam Oral MetFORMIN HCl Oral 1000, 2x a day Omeprazole Oral 20 mg, 2x a day Prazosin HCl Oral unknown, at bedtime Robaxin Oral 750 mg, 3x a day TraZODone HCl Oral unknown, at bedtime The source(s) of the original Home Medication information: Not obtained. The following Medications were given to the patient in the Emergency Department: None. The following Medications were prescribed to the patient: Levaquin 500 mg: take 1 tab orally every day for 7 days. No refills. Substitution is permissible. -- Devan Macias Dr.
--- NOTE | 2016-07-31 20:47 | ED MAR SUMMARY ---
..... Medication Administration Record [facility] [address] [place], [place] [id number] Patient: ELIDIA SAXENA Visit ID: [id number] 46y, F Weight: 128.3 kg Height/Length: 64 in BMI: 48.6 ALLERGIES: Ampicillin, Latex, Morphine and Related, Penicillins, Zithromax
== END 2016-07-31 20:45 | disposition home or self-care (01) ==
LOC: ED SRH 19:57
DX: J01.00 Acute maxillary sinusitis, unspecified (principal); E11.9 Type 2 diabetes mellitus without complications; Z79.84 Long term (current) use of oral hypoglycemic drugs; Z79.899 Other long term (current) drug therapy